=== PATIENT | female | born 1985 | race Hispanic/Latino ===

== ENCOUNTER 2023-12-09 20:02 | Emergency (ER) | payer OTHER ==
[~2023-12-09] VITALS: Ht 160 cm; Wt 65.8 kg
[2023-12-09 20:30] LABS: APPEARANCE,URINE CLEAR (CLEAR); BILIRUBIN,URINE NEGATIVE (NEGATIVE); COLOR,URINE LIGHT-YELLOW (YELLOW); GLUCOSE, URINE (UA) NEGATIVE (NEGATIVE); KETONES,URINE NEGATIVE (NEGATIVE); LEUKOCYTE ESTERASE ,URINE 25 Leu/uL (NEGATIVE); NITRATE,URINE NEGATIVE (NEGATIVE); OCCULT BLOOD,URINE SMALL (NEGATIVE); PROTEIN,URINE NEGATIVE (NEGATIVE); UROBILINOGEN,URINE 0.2 mg/dL (0.2-1.0)
[2023-12-09 20:35] LABS: ADD UA MICROSCOPIC YES
[2023-12-09 20:37] LABS: BACTERIA,URINE RARE /HPF (None Seen); MUCUS,URINE RARE LPF (None Seen); SQUAMOUS EPITHELIAL CELL,UR RARE /HPF (0-2)
[2023-12-09] MEDS: PHENAZOPYRIDINE HCL 200 MG TABLET PO ONE (20:56)
[2023-12-09] MEDS: 0.9%NACL 1000ML 1,000 ML IV ONE (20:56)
[2023-12-09] MEDS: KETOROLAC 30MG VIAL (30MG/ML) IVP ONE (20:56)
[2023-12-09] MEDS: ONDANSETRON 4MG INJ IVP ONE (20:56)
[2023-12-09 21:09] LABS: BASOPHILS # (AUTO) 0.04 K/uL (0.00-0.20); BASOPHILS % (AUTO) 0.5 % (0.0-5.0); EOSINOPHILS # (AUTO) 0.15 K/uL (0.00-0.70); EOSINOPHILS % (AUTO) 1.8 % (0.0-8.0); HEMATOCRIT 35.9 % (36-48); IMMATURE GRANULOCYTE ABSOLUTE 0.01 K/uL (0-1); LYMPHOCYTES # (AUTO) 2.8 K/uL (1.0-4.8); LYMPHOCYTES % (AUTO) 33.7 % (21.0-51.0); MEAN CORPUSCULAR VOLUME 91.1 fL (79-99); MONOCYTES # (AUTO) 0.6 K/uL (0.1-1.0); MONOCYTES % (AUTO) 7.5 % (3.0-13.0); NEUTROPHILS # (AUTO) 4.7 K/uL (1.8-7.7); NEUTROPHILS % (AUTO) 56.4 % (40.0-77.0); PLATELET COUNT (AUTO) 302 K/uL (130-400); RED BLOOD CELL COUNT(AUTO) 3.94 MIL/uL (4.00-5.50); RED CELL DISTRIBUTION WIDTH 13.1 % (11.0-15.5); WHITE BLOOD COUNT (AUTO) 8.3 K/uL (4.8-10.8)
[2023-12-09 21:25] LABS: ALBUMIN 3.9 g/dL (3.5-5.0); BILIRUBIN,TOTAL 0.3 mg/dL (0.2-1.0); CREATININE 0.7 mg/dL (0.5-1.5); POTASSIUM 3.6 mmol/L (3.5-5.1); TOTAL PROTEIN, SERUM 7.5 g/dL (6.0-8.3)
[2023-12-09] MEDS: MORPHINE 2 MG SYG IVP ONE (22:28)
[2023-12-09] MEDS ORDERED: PHEN-776 PO (22:57)
[2023-12-09] MEDS ORDERED: AMOX1TAB16 PO (22:57)
[2023-12-09] MEDS ORDERED: ONDA4TAB10 PO (22:57)
[2023-12-09] MEDS ORDERED: IBUP-2070 PO (22:57)
[2023-12-09] MEDS: AMOX/CLAV 875/125MG TAB PO ONE (22:59)
[2023-12-09 23:18] VITALS: BP 128/63; PULSE 88; RESP 17; O2SAT 99
== END 2023-12-09 23:17 | disposition home or self-care (01) ==
LOC: EDH 20:02
DX: N30.01 Acute cystitis with hematuria (principal); N20.9 Urinary calculus, unspecified; N23 Unspecified renal colic
CPT/HCPCS: 99285; 74176; 96374; 96375; 96361; 80053; 85025; 87088; 81001; 81025; 36415; J2270; J7030; J2405; J1885

== ENCOUNTER 2023-12-19 19:21 | Inpatient (IN) | payer OTHER ==
[~2023-12-19] VITALS: Ht 160 cm; Wt 60.8 kg
[~2023-12-19 19:21] MED LIST: AMOX1TAB16 PO; IBUP-2070 PO; ONDA4TAB10 PO; PHEN-776 PO
[2023-12-19] MEDS: KETOROLAC 30MG VIAL (30MG/ML) IVP ONE (19:40)
[2023-12-19] MEDS: 0.9%NACL 1000ML 1,000 ML IV ONE (19:41)
[2023-12-19] MEDS: ONDANSETRON 4MG INJ IVP PRN (19:48)
[2023-12-19 20:27] LABS: BASOPHILS # (AUTO) 0.06 K/uL (0.00-0.20); BASOPHILS % (AUTO) 0.4 % (0.0-5.0); EOSINOPHILS # (AUTO) 0.05 K/uL (0.00-0.70); EOSINOPHILS % (AUTO) 0.3 % (0.0-8.0); HEMATOCRIT 35.6 % (36-48); IMMATURE GRANULOCYTE ABSOLUTE 0.05 K/uL (0-1); LYMPHOCYTES # (AUTO) 1.3 K/uL (1.0-4.8); LYMPHOCYTES % (AUTO) 8.9 % (21.0-51.0); MEAN CORPUSCULAR HEMOGLOBIN 30.4 pg (27.0-33.0); MEAN CORPUSCULAR HGB CONC 33.4 g/dL (32.0-36.0); MEAN CORPUSCULAR VOLUME 90.8 fL (79-99); MONOCYTES # (AUTO) 0.9 K/uL (0.1-1.0); MONOCYTES % (AUTO) 6.6 % (3.0-13.0); NEUTROPHILS % (AUTO) 83.5 % (40.0-77.0); PLATELET COUNT (AUTO) 272 K/uL (130-400); RED BLOOD CELL COUNT(AUTO) 3.92 MIL/uL (4.00-5.50); RED CELL DISTRIBUTION WIDTH 13.1 % (11.0-15.5); WHITE BLOOD COUNT (AUTO) 14.4 K/uL (4.8-10.8)
[2023-12-19 20:28] LABS: CREATININE 0.6 mg/dL (0.5-1.5); POTASSIUM 3.8 mmol/L (3.5-5.1)
[2023-12-19] MEDS: ACETAMINOPHEN 500 MG TABLET PO ONE (20:28)
[2023-12-19] MEDS: DEXAMETHASONE SOD PHOSPHATE 4 MG/ML 1ML VIAL IVP ONE (20:28)
[2023-12-19] MEDS: METOCLOPRAMIDE 10 MG/2 ML VIAL IVP ONE ×2 (20:30→23:51)
[2023-12-19 20:34] LABS: APPEARANCE,URINE CLOUDY (CLEAR); BILIRUBIN,URINE NEGATIVE (NEGATIVE); COLOR,URINE YELLOW (YELLOW); GLUCOSE, URINE (UA) NEGATIVE (NEGATIVE); KETONES,URINE NEGATIVE (NEGATIVE); LEUKOCYTE ESTERASE ,URINE 500 Leu/uL (NEGATIVE); NITRATE,URINE NEGATIVE (NEGATIVE); OCCULT BLOOD,URINE MODERATE (NEGATIVE); PH,URINE 6.5 (5.0-8.0); PROTEIN,URINE 20 mg/dL (NEGATIVE); UROBILINOGEN,URINE 0.2 mg/dL (0.2-1.0)
[2023-12-19 20:37] LABS: ADD UA MICROSCOPIC YES
[2023-12-19 20:40] LABS: BACTERIA,URINE MOD /HPF (None Seen); SQUAMOUS EPITHELIAL CELL,UR FEW /HPF (0-2); WBC,URINE 51-100 /HPF (0-1); YEAST,URINE BUDDING RARE /HPF (None Seen)
[2023-12-19 20:43] LABS: AMPHET/METH SCREEN,URINE NEGATIVE (NEGATIVE); BARBITURATE SCREEN, URINE NEGATIVE (NEGATIVE); BENZODIAZEPINES SCREEN,URINE NEGATIVE (NEGATIVE); CANNABINOID SCREEN,URINE NEGATIVE (NEGATIVE); COCAINE SCREEN,URINE NEGATIVE (NEGATIVE); OPIATE SCREEN,URINE NEGATIVE (NEGATIVE); PHENCYCLIDINE SCREEN,URINE NEGATIVE (NEGATIVE)
[2023-12-19 20:46] LABS: SARS-CoV-2, RNA, NAAT NEGATIVE SARS CoV-2 (NEGATIVE)
[2023-12-19 20:52] LABS: INFLUENZA TYPE A Negative For Type A (NEGATIVE); INFLUENZA TYPE B Negative For Type B (NEGATIVE)
[2023-12-19] MEDS ORDERED: LEVOFLOXACIN 500 MG TABLET PO ONE (23:30)
[2023-12-19] MEDS: MORPHINE 4 MG SYG IVP ONE (23:38)
[2023-12-19] MEDS: CEFTRIAXONE 2GM VIAL IVPB ONE (23:38)
[2023-12-20] MEDS: KETOROLAC 15MG/ML VIAL (15MG/ML) IV PRN (01:21)
[2023-12-20] MEDS: 0.9%NACL 1000ML 1,000 ML IV SCH (03:10)
[2023-12-20] MEDS: ONDANSETRON 4MG INJ IV PRN (04:21)
[2023-12-20] MEDS: MORPHINE 2 MG SYG IVP PRN (04:22)
[2023-12-20 04:40] VITALS: O2SAT 98
[2023-12-20 06:23] LABS: BASOPHILS # (AUTO) 0.01 K/uL (0.00-0.20); BASOPHILS % (AUTO) 0.1 % (0.0-5.0); HEMATOCRIT 37.1 % (36-48); IMMATURE GRANULOCYTE ABSOLUTE 0.06 K/uL (0-1); LYMPHOCYTES # (AUTO) 0.6 K/uL (1.0-4.8); LYMPHOCYTES % (AUTO) 5.1 % (21.0-51.0); MEAN CORPUSCULAR HEMOGLOBIN 30.3 pg (27.0-33.0); MEAN CORPUSCULAR HGB CONC 33.4 g/dL (32.0-36.0); MEAN CORPUSCULAR VOLUME 90.7 fL (79-99); MONOCYTES # (AUTO) 0.1 K/uL (0.1-1.0); MONOCYTES % (AUTO) 0.5 % (3.0-13.0); NEUTROPHILS # (AUTO) 10.8 K/uL (1.8-7.7); NEUTROPHILS % (AUTO) 93.8 % (40.0-77.0); PLATELET COUNT (AUTO) 301 K/uL (130-400); RED BLOOD CELL COUNT(AUTO) 4.09 MIL/uL (4.00-5.50); WHITE BLOOD COUNT (AUTO) 11.5 K/uL (4.8-10.8)
[2023-12-20 06:39] LABS: ALBUMIN 3.5 g/dL (3.5-5.0); BILIRUBIN,TOTAL 0.8 mg/dL (0.2-1.0); CREATININE 0.5 mg/dL (0.5-1.5); MAGNESIUM 1.8 mg/dL (1.80-2.40); POTASSIUM 3.6 mmol/L (3.5-5.1)
[2023-12-20 08:00] VITALS: BP 118/83; PULSE 97; RESP 21
[2023-12-20] MEDS: CEFTRIAXONE 1G VIAL IVPB SCH (08:34)
[2023-12-20] MEDS: FAMOTIDINE 20MG VIAL IV SCH (08:34)
[2023-12-20 12:00] VITALS: BP 120/69; PULSE 107; RESP 19
[2023-12-20 16:00] VITALS: BP 132/83; PULSE 95; RESP 16
[2023-12-20 20:00] VITALS: BP 129/89; PULSE 84; RESP 18
[2023-12-20 21:00] VITALS: O2SAT 98
[2023-12-21] VITALS: BP 117/70; PULSE 95; RESP 18
[2023-12-21 03:55] VITALS: BP 120/73; PULSE 83; RESP 18
[2023-12-21 08:00] VITALS: BP 106/58; PULSE 80; RESP 18; O2SAT 99
[2023-12-21 09:06] LABS: BASOPHILS # (AUTO) 0.03 K/uL (0.00-0.20); BASOPHILS % (AUTO) 0.3 % (0.0-5.0); EOSINOPHILS # (AUTO) 0.02 K/uL (0.00-0.70); EOSINOPHILS % (AUTO) 0.2 % (0.0-8.0); HEMATOCRIT 32.3 % (36-48); IMMATURE GRANULOCYTE ABSOLUTE 0.03 K/uL (0-1); LYMPHOCYTES # (AUTO) 2.8 K/uL (1.0-4.8); LYMPHOCYTES % (AUTO) 29.5 % (21.0-51.0); MEAN CORPUSCULAR HEMOGLOBIN 31.1 pg (27.0-33.0); MEAN CORPUSCULAR HGB CONC 33.4 g/dL (32.0-36.0); MEAN CORPUSCULAR VOLUME 93.1 fL (79-99); MONOCYTES # (AUTO) 0.5 K/uL (0.1-1.0); MONOCYTES % (AUTO) 4.7 % (3.0-13.0); NEUTROPHILS # (AUTO) 6.2 K/uL (1.8-7.7); PLATELET COUNT (AUTO) 249 K/uL (130-400); RED BLOOD CELL COUNT(AUTO) 3.47 MIL/uL (4.00-5.50); RED CELL DISTRIBUTION WIDTH 13.4 % (11.0-15.5); WHITE BLOOD COUNT (AUTO) 9.5 K/uL (4.8-10.8)
[2023-12-21 09:23] LABS: BILIRUBIN,TOTAL 0.6 mg/dL (0.2-1.0); CREATININE 0.6 mg/dL (0.5-1.5); POTASSIUM 3.5 mmol/L (3.5-5.1)
[2023-12-21 12:00] VITALS: BP 118/66; PULSE 83; RESP 18
[2023-12-21] MEDS: DOCUSATE SODIUM 100 MG CAP PO ONE (14:59)
[2023-12-21 16:00] VITALS: BP 106/69; PULSE 81; RESP 18
[2023-12-21 20:00] VITALS: BP 121/80; PULSE 72; RESP 18
[2023-12-21] MEDS: LACTULOSE 20 GM/30 ML UDCUP PO PRN (20:34)
[2023-12-21] MEDS: DOCUSATE SODIUM 100 MG CAP PO SCH (21:00)
[2023-12-22] VITALS (7 sets, daily range): BP systolic 104–141; BP diastolic 65–88; PULSE 58–85; RESP 18; O2SAT 98
[2023-12-22 05:03] LABS: BASOPHILS # (AUTO) 0.03 K/uL (0.00-0.20); BASOPHILS % (AUTO) 0.4 % (0.0-5.0); EOSINOPHILS # (AUTO) 0.07 K/uL (0.00-0.70); EOSINOPHILS % (AUTO) 0.9 % (0.0-8.0); HEMATOCRIT 32.9 % (36-48); IMMATURE GRANULOCYTE ABSOLUTE 0.02 K/uL (0-1); LYMPHOCYTES # (AUTO) 3.6 K/uL (1.0-4.8); LYMPHOCYTES % (AUTO) 43.9 % (21.0-51.0); MEAN CORPUSCULAR HEMOGLOBIN 30.5 pg (27.0-33.0); MEAN CORPUSCULAR HGB CONC 32.8 g/dL (32.0-36.0); MEAN CORPUSCULAR VOLUME 92.9 fL (79-99); MONOCYTES # (AUTO) 0.5 K/uL (0.1-1.0); MONOCYTES % (AUTO) 5.7 % (3.0-13.0); NEUTROPHILS % (AUTO) 48.9 % (40.0-77.0); PLATELET COUNT (AUTO) 234 K/uL (130-400); RED BLOOD CELL COUNT(AUTO) 3.54 MIL/uL (4.00-5.50); RED CELL DISTRIBUTION WIDTH 13.2 % (11.0-15.5); WHITE BLOOD COUNT (AUTO) 8.1 K/uL (4.8-10.8)
[2023-12-22 05:22] LABS: ALBUMIN 2.8 g/dL (3.5-5.0); BILIRUBIN,TOTAL 0.4 mg/dL (0.2-1.0); CREATININE 0.5 mg/dL (0.5-1.5); POTASSIUM 3.6 mmol/L (3.5-5.1); TOTAL PROTEIN, SERUM 5.9 g/dL (6.0-8.3)
[2023-12-22] MEDS: POLYETHYLENE GLYCOL 3350 17 GM POWD.PACK PO SCH (09:02)
[2023-12-23] VITALS: BP 121/75; PULSE 56; RESP 18
[2023-12-23 03:54] VITALS: BP 133/81; PULSE 63; RESP 18
[2023-12-23 05:00] LABS: BASOPHILS # (AUTO) 0.03 K/uL (0.00-0.20); BASOPHILS % (AUTO) 0.4 % (0.0-5.0); EOSINOPHILS % (AUTO) 1.2 % (0.0-8.0); HEMATOCRIT 34.7 % (36-48); IMMATURE GRANULOCYTE ABSOLUTE 0.03 K/uL (0-1); LYMPHOCYTES # (AUTO) 2.6 K/uL (1.0-4.8); LYMPHOCYTES % (AUTO) 31.3 % (21.0-51.0); MEAN CORPUSCULAR HEMOGLOBIN 30.7 pg (27.0-33.0); MEAN CORPUSCULAR HGB CONC 33.4 g/dL (32.0-36.0); MEAN CORPUSCULAR VOLUME 91.8 fL (79-99); MONOCYTES # (AUTO) 0.5 K/uL (0.1-1.0); MONOCYTES % (AUTO) 6.4 % (3.0-13.0); NEUTROPHILS % (AUTO) 60.3 % (40.0-77.0); PLATELET COUNT (AUTO) 270 K/uL (130-400); RED BLOOD CELL COUNT(AUTO) 3.78 MIL/uL (4.00-5.50); WHITE BLOOD COUNT (AUTO) 8.3 K/uL (4.8-10.8)
[2023-12-23 05:21] LABS: CREATININE 0.5 mg/dL (0.5-1.5); POTASSIUM 3.7 mmol/L (3.5-5.1)
[2023-12-23 08:00] VITALS: BP 131/87; PULSE 71; RESP 18; O2SAT 99
[2023-12-23 12:00] VITALS: BP 113/66; PULSE 68; RESP 18
[2023-12-23 16:00] VITALS: BP 112/78; PULSE 68; RESP 18
[2023-12-23 20:00] VITALS: BP 125/83; PULSE 68; RESP 18; O2SAT 100
[2023-12-23] MEDS: HYDROXYZINE 25 MG TABLET PO ONE (21:21)
[2023-12-24] VITALS (9 sets, daily range): BP systolic 109–136; BP diastolic 63–84; PULSE 65–103; RESP 16–20; O2SAT 99–100
[2023-12-24 04:25] LABS: HEMATOCRIT 33.8 % (36-48); MEAN CORPUSCULAR HEMOGLOBIN 30.5 pg (27.0-33.0); MEAN CORPUSCULAR HGB CONC 33.4 g/dL (32.0-36.0); MEAN CORPUSCULAR VOLUME 91.1 fL (79-99); RED BLOOD CELL COUNT(AUTO) 3.71 MIL/uL (4.00-5.50); RED CELL DISTRIBUTION WIDTH 12.8 % (11.0-15.5); WHITE BLOOD COUNT (AUTO) 9.9 K/uL (4.8-10.8)
[2023-12-24 04:45] LABS: ALBUMIN 2.8 g/dL (3.5-5.0); BILIRUBIN,TOTAL 0.4 mg/dL (0.2-1.0); CREATININE 0.5 mg/dL (0.5-1.5); MAGNESIUM 1.7 mg/dL (1.80-2.40); POTASSIUM 3.6 mmol/L (3.5-5.1); TOTAL PROTEIN, SERUM 5.7 g/dL (6.0-8.3)
[2023-12-24] MEDS: KCL 20 MEQ ERTAB PO PRN (05:21)
[2023-12-24] MEDS: MAGNESIUM 2GM PREMIX 50ML 50 ML IV PRN (05:21)
[2023-12-24] MEDS ORDERED: POTASSIUM CHLORIDE 20MEQ/100ML 100 ML IV PRN (05:30)
[2023-12-24] MEDS ORDERED: POTASSIUM CHLORIDE 10% ELIXIR 20 MEQ/15 ML UDCUP PO PRN (05:30)
[2023-12-24] MEDS ORDERED: TAMS-1 PO (09:44)
[2023-12-24] MEDS: TAMSULOSIN HCL 0.4 MG CAP.ER.24H PO ONE (09:48)
[2023-12-24] MEDS: LINEZOLID 600 MG/ISO-OSM 300 ML IV SCH (20:33)
[2023-12-24] MEDS: HYDROXYZINE 25 MG TABLET PO ONE (20:33)
[2023-12-24] MEDS: ONDANSETRON 4MG INJ IVP PRN (21:26)
[2023-12-25 04:11] VITALS: BP 102/61; PULSE 64; RESP 16
[2023-12-25 06:54] LABS: BASOPHILS # (AUTO) 0.04 K/uL (0.00-0.20); BASOPHILS % (AUTO) 0.5 % (0.0-5.0); EOSINOPHILS # (AUTO) 0.14 K/uL (0.00-0.70); EOSINOPHILS % (AUTO) 1.9 % (0.0-8.0); HEMATOCRIT 36.8 % (36-48); IMMATURE GRANULOCYTE ABSOLUTE 0.02 K/uL (0-1); LYMPHOCYTES # (AUTO) 2.1 K/uL (1.0-4.8); LYMPHOCYTES % (AUTO) 28.3 % (21.0-51.0); MEAN CORPUSCULAR HEMOGLOBIN 30.6 pg (27.0-33.0); MEAN CORPUSCULAR HGB CONC 33.2 g/dL (32.0-36.0); MEAN CORPUSCULAR VOLUME 92.2 fL (79-99); MONOCYTES # (AUTO) 0.6 K/uL (0.1-1.0); MONOCYTES % (AUTO) 7.8 % (3.0-13.0); NEUTROPHILS # (AUTO) 4.5 K/uL (1.8-7.7); NEUTROPHILS % (AUTO) 61.2 % (40.0-77.0); PLATELET COUNT (AUTO) 277 K/uL (130-400); RED BLOOD CELL COUNT(AUTO) 3.99 MIL/uL (4.00-5.50); RED CELL DISTRIBUTION WIDTH 13.2 % (11.0-15.5); WHITE BLOOD COUNT (AUTO) 7.4 K/uL (4.8-10.8)
[2023-12-25 07:12] LABS: ALBUMIN 3.1 g/dL (3.5-5.0); BILIRUBIN,TOTAL 0.4 mg/dL (0.2-1.0); CREATININE 0.7 mg/dL (0.5-1.5); MAGNESIUM 1.8 mg/dL (1.80-2.40); POTASSIUM 3.9 mmol/L (3.5-5.1); TOTAL PROTEIN, SERUM 6.3 g/dL (6.0-8.3)
[2023-12-25 07:30] VITALS: O2SAT 100
[2023-12-25 07:32] VITALS: BP 111/59; PULSE 79; RESP 19
[2023-12-25] MEDS: TAMSULOSIN HCL 0.4 MG CAP.ER.24H PO SCH (09:33)
[2023-12-25 11:39] VITALS: BP 107/77; PULSE 64; RESP 18
== END 2023-12-25 15:05 | disposition home or self-care (01) | DRG 872 ==
LOC: EDH 19:21 → EDHIP 12-20 01:55 → 4CH 12-20 03:22 → WSH 12-24 08:55
PROVIDERS: ADMIT Hospitalist; ATTEND Hospitalist
DX: A41.1 Sepsis due to other specified staphylococcus (principal); N30.01 Acute cystitis with hematuria; N10 Acute pyelonephritis; N20.0 Calculus of kidney; G43.009 Migraine without aura, not intractable, without status migrainosus; D64.9 Anemia, unspecified; K59.00 Constipation, unspecified; M32.9 Systemic lupus erythematosus, unspecified; N28.89 Other specified disorders of kidney and ureter; Z85.43 Personal history of malignant neoplasm of ovary; Z88.2 Allergy status to sulfonamides; Z91.041 Radiographic dye allergy status; Z87.442 Personal history of urinary calculi; Z90.711 Acquired absence of uterus with remaining cervical stump; Z90.721 Acquired absence of ovaries, unilateral
CPT/HCPCS: 36415; 71045; 74018; 74176; 80048; 80053; 80305; 81001; 83605; 83735; 84145; 84484; 85025; 85027; 87040; 87077; 87088; 87186; 87635; 87804; 93005; G0378; J0696; J1100; J1885; J2020; J2270; J2405; J2765; J3475; J3490

== ENCOUNTER 2024-02-05 14:33 | Emergency (ER) | payer OTHER ==
[~2024-02-05] VITALS: Ht 160 cm; Wt 56.7 kg
[~2024-02-05 14:33] MED LIST changes: -AMOX1TAB16 PO; +TAMS-1 PO
[2024-02-05 15:00] LABS: BASOPHILS # (AUTO) 0.04 K/uL (0.00-0.20); BASOPHILS % (AUTO) 0.5 % (0.0-5.0); EOSINOPHILS # (AUTO) 0.09 K/uL (0.00-0.70); EOSINOPHILS % (AUTO) 1.1 % (0.0-8.0); HEMATOCRIT 39.8 % (36-48); IMMATURE GRANULOCYTE ABSOLUTE 0.03 K/uL (0-1); LYMPHOCYTES # (AUTO) 2.9 K/uL (1.0-4.8); LYMPHOCYTES % (AUTO) 34.5 % (21.0-51.0); MEAN CORPUSCULAR HEMOGLOBIN 31.6 pg (27.0-33.0); MEAN CORPUSCULAR HGB CONC 33.2 g/dL (32.0-36.0); MEAN CORPUSCULAR VOLUME 95.2 fL (79-99); MONOCYTES # (AUTO) 0.4 K/uL (0.1-1.0); MONOCYTES % (AUTO) 5.2 % (3.0-13.0); NEUTROPHILS % (AUTO) 58.3 % (40.0-77.0); PLATELET COUNT (AUTO) 294 K/uL (130-400); RED BLOOD CELL COUNT(AUTO) 4.18 MIL/uL (4.00-5.50); RED CELL DISTRIBUTION WIDTH 13.8 % (11.0-15.5); WHITE BLOOD COUNT (AUTO) 8.5 K/uL (4.8-10.8)
[2024-02-05] MEDS: ONDANSETRON 4MG INJ IVP ONE (15:02)
[2024-02-05] MEDS: MORPHINE 4 MG SYG IVP ONE (15:03)
[2024-02-05] MEDS: 0.9%NACL 1000ML 1,000 ML IV SCH (15:06)
[2024-02-05 15:11] LABS: CREATININE 0.6 mg/dL (0.5-1.0); POTASSIUM 3.9 mmol/L (3.5-5.1)
[2024-02-05 15:16] LABS: ALBUMIN 4.2 g/dL (3.5-5.0); BILIRUBIN,TOTAL 0.4 mg/dL (0.2-1.0); TOTAL PROTEIN, SERUM 7.9 g/dL (6.0-8.3)
[2024-02-05] MEDS: FAMOTIDINE 20MG VIAL IV ONE (15:33)
[2024-02-05] MEDS: METOCLOPRAMIDE 10 MG/2 ML VIAL IVP ONE (15:33)
[2024-02-05] MEDS: KETOROLAC 30MG VIAL (30MG/ML) IVP ONE (15:34)
[2024-02-05 16:04] VITALS: BP 103/56; PULSE 69; RESP 18; O2SAT 99
[2024-02-05 16:59] LABS: APPEARANCE,URINE CLEAR (CLEAR); BILIRUBIN,URINE NEGATIVE (NEGATIVE); COLOR,URINE DARK-YELLOW (YELLOW); GLUCOSE, URINE (UA) NEGATIVE (NEGATIVE); KETONES,URINE NEGATIVE (NEGATIVE); LEUKOCYTE ESTERASE ,URINE NEGATIVE Leu/uL (NEGATIVE); NITRATE,URINE 1+ (NEGATIVE); OCCULT BLOOD,URINE SMALL (NEGATIVE); PROTEIN,URINE NEGATIVE (NEGATIVE); UROBILINOGEN,URINE 0.2 mg/dL (0.2-1.0)
[2024-02-05 17:01] LABS: ADD UA MICROSCOPIC YES
[2024-02-05 17:03] LABS: BACTERIA,URINE FEW /HPF (None Seen); SQUAMOUS EPITHELIAL CELL,UR RARE /HPF (0-2); WBC,URINE 0-1 /HPF (0-1)
[2024-02-05] MEDS ORDERED: KETO10 PO (18:00)
[2024-02-05] MEDS ORDERED: METO-296 PO (18:00)
[2024-02-05] MEDS ORDERED: FAMO-136 PO (18:00)
[2024-02-05] MEDS ORDERED: TAMS-1 PO (18:00)
== END 2024-02-05 18:16 | disposition home or self-care (01) ==
LOC: EDH 14:33
DX: N13.2 Hydronephrosis with renal and ureteral calculous obstruction (principal); Z90.710 Acquired absence of both cervix and uterus; Z98.890 Other specified postprocedural states; Z88.2 Allergy status to sulfonamides; Z88.8 Allergy status to other drugs, medicaments and biological substances; Z91.041 Radiographic dye allergy status
CPT/HCPCS: 99285; 74176; 96374; 96375; 96361; 80053; 83690; 85025; 87088; 81001; 36415; J3490; J7030; J2405; J2270; J1885; J2765

== ENCOUNTER 2024-06-30 21:21 | Emergency (ER) | payer OTHER ==
[~2024-06-30] VITALS: Ht 160 cm; Wt 59.0 kg
[~2024-06-30 21:21] MED LIST changes: +FAMO-136 PO; +KETO10 PO; +METO-296 PO; +ONDA-243 PO; -ONDA4TAB10 PO
[2024-06-30] MEDS ORDERED: IBUP-2071 PO (22:29)
[2024-06-30 22:32] VITALS: BP 137/77; PULSE 62; RESP 20; TEMP 97.9; O2SAT 100
[2024-06-30] MEDS: ketOROlac 15MG/ML VIAL (15MG/ML) IM STA (22:32)
== END 2024-06-30 22:37 | disposition home or self-care (01) ==
LOC: EDH 21:21
DX: S63.592A Other specified sprain of left wrist, initial encounter (principal); Z79.899 Other long term (current) drug therapy; Z88.2 Allergy status to sulfonamides; Z88.8 Allergy status to other drugs, medicaments and biological substances; Z90.710 Acquired absence of both cervix and uterus; Z91.013 Allergy to seafood; Z91.018 Allergy to other foods; Z98.890 Other specified postprocedural states; W50.1XXA Accidental kick by another person, initial encounter; Y93.89 Activity, other specified; Y92.89 Other specified places as the place of occurrence of the external cause; Y99.8 Other external cause status
CPT/HCPCS: 99284; 73502; 73110; 29125; 96372; J1885

== ENCOUNTER 2024-10-15 11:52 | Emergency (ER) | payer OTHER ==
[~2024-10-15] VITALS: Ht 160 cm; Wt 59.0 kg
[~2024-10-15 11:52] MED LIST changes: +IBUP-2071 PO
[2024-10-15] MEDS: ondanSETRON 4MG INJ IVP ONE (12:11)
[2024-10-15] MEDS: 0.9%NACL 1000ML 1,000 ML IV ONE (12:11)
[2024-10-15 12:16] LABS: BASOPHILS # (AUTO) 0.03 K/uL (0.00-0.20); BASOPHILS % (AUTO) 0.4 % (0.0-5.0); EOSINOPHILS # (AUTO) 0.16 K/uL (0.00-0.70); EOSINOPHILS % (AUTO) 2.3 % (0.0-8.0); HEMATOCRIT 36.8 % (36-48); IMMATURE GRANULOCYTE ABSOLUTE 0.02 K/uL (0-1); LYMPHOCYTES # (AUTO) 1.4 K/uL (1.0-4.8); LYMPHOCYTES % (AUTO) 20.3 % (21.0-51.0); MEAN CORPUSCULAR HEMOGLOBIN 30.6 pg (27.0-33.0); MEAN CORPUSCULAR VOLUME 90.2 fL (79-99); MONOCYTES # (AUTO) 0.7 K/uL (0.1-1.0); MONOCYTES % (AUTO) 10.1 % (3.0-13.0); NEUTROPHILS # (AUTO) 4.7 K/uL (1.8-7.7); NEUTROPHILS % (AUTO) 66.6 % (40.0-77.0); PLATELET COUNT (AUTO) 230 K/uL (130-400); RED BLOOD CELL COUNT(AUTO) 4.08 MIL/uL (4.00-5.50); RED CELL DISTRIBUTION WIDTH 12.9 % (11.0-15.5); WHITE BLOOD COUNT (AUTO) 7.1 K/uL (4.8-10.8)
--- NOTE | 2024-10-15 12:21 | NUR ---
PT WAS DIRECTED BEDDED TO MY ED 10. SHE WAS OFFERED AND ACCEPTED A WARM BLANKET. SHE HAS EMESIS BAGS WHERE SHE HAD YELLOWISH BILE VOMITING.
[2024-10-15 12:22] LABS: APPEARANCE,URINE CLEAR (CLEAR); BILIRUBIN,URINE NEGATIVE (NEGATIVE); COLOR,URINE LIGHT-YELLOW (YELLOW); GLUCOSE, URINE (UA) NEGATIVE (NEGATIVE); KETONES,URINE NEGATIVE (NEGATIVE); LEUKOCYTE ESTERASE ,URINE NEGATIVE Leu/uL (NEGATIVE); NITRATE,URINE NEGATIVE (NEGATIVE); OCCULT BLOOD,URINE SMALL (NEGATIVE); PH,URINE 6.5 (5.0-8.0); PROTEIN,URINE NEGATIVE (NEGATIVE); UROBILINOGEN,URINE 0.2 mg/dL (0.2-1.0)
[2024-10-15 12:25] LABS: ADD UA MICROSCOPIC YES
[2024-10-15 12:27] LABS: BACTERIA,URINE MOD /HPF (None Seen); MUCUS,URINE RARE LPF (None Seen); SQUAMOUS EPITHELIAL CELL,UR FEW /HPF (0-2)
[2024-10-15 12:30] LABS: ALBUMIN 3.5 g/dL (3.5-5.0); BILIRUBIN,DIRECT 0.1 mg/dL (0.0-0.3); BILIRUBIN,TOTAL 0.3 mg/dL (0.2-1.0); TOTAL PROTEIN, SERUM 6.8 g/dL (6.0-8.3)
--- NOTE | 2024-10-15 12:32 | ERN ---
ED Note History of Present Illness Stated Complaint: N/V/D X 4 DAYS Chief Complaint: Nausea,Vomiting,Diarrhea Time Seen by MD: 11:54 Dictation: 39-year-old female with a history of lupus presents to the ED for evaluation of cough onset 4 days ago. Patient reports sore throat, abdominal pain, body aches, vomiting, diarrhea, but denies any fever or any other associated symptoms at this time. Sick contacts at work with similar symptoms. Allergies: Coded Allergies: Fish Containing Products (Unverified Allergy, Severe, ANAPHYLAXIS, 12/22/23) pineapple (Unverified Allergy, Severe, anaphylaxis, 12/22/23) shellfish derived (Unverified Allergy, Severe, anaphylaxis, 12/22/23) artichoke (Unverified Allergy, Intermediate, 12/21/23) iodine (Unverified Allergy, Intermediate, irritation, 12/22/23) mushroom (Unverified Allergy, Intermediate, 12/21/23) Sulfa (Sulfonamide Antibiotics) (Unverified Allergy, Unknown, 12/09/23) Home Meds Active Scripts Oseltamivir Phosphate (Tamiflu) 75 Mg Cap, 75 MG PO BID for 5 Days, #10 CAP Prov:JAY COSTA MD 10/15/24 Azithromycin (Azithromycin) 250 Mg Tablet, 250 MG PO AD for cough for 5 Days, #6 TAB Prov:JAY COSTA MD 10/15/24 Ibuprofen (Ibuprofen) 800 Mg Tablet, 800 MG PO Q8H PRN for PAIN, #30 TAB 0 Refills Prov:MAGDALENO QUIJANO 06/30/24 Metoclopramide HCl (Reglan) 10 Mg Tablet, 10 MG PO QIDP PRN for NAUSEA, #40 TAB 2 Refills Prov:SPENCER FINCH Sr., MD 02/05/24 Famotidine (Pepcid) 20 Mg Tablet, 20 MG PO BID, #60 TAB 2 Refills Prov:SPENCER FINCH Sr., MD 02/05/24 Ketorolac Tromethamine (Toradol) 10 Mg Tab, 10 MG PO TIDP PRN for PAIN LEVEL 7 TO 10, #5 TAB 1 Refill Prov:SPENCER FINCH Sr., MD 02/05/24 Tamsulosin HCl (Flomax) 0.4 Mg Cap.er.24h, 0.4 MG PO DAILY, #5 CAPSULE. 1 Refill Prov:SPENCER FINCH Sr., MD 02/05/24 Tamsulosin HCl (Flomax) 0.4 Mg Cap.er.24h, 0.4 MG PO DAILY for 15 Days, #15 CAPSULE. Prov:YVETTE MENDEZ NP 12/24/23 Phenazopyridine HCl (Pyridium) 200 Mg Tablet, 200 MG PO TID for painful urination for 5 Days, #15 TAB 0 Refills Prov:FRANCISCO SWIFT ENGLISH LANGUAGE LEARNER TUTOR 12/09/23 Ibuprofen (Ibuprofen) 600 Mg Tablet, 600 MG PO Q6H PRN for PAIN, #30 TAB Prov:FRANCISCO SWIFT ENGLISH LANGUAGE LEARNER TUTOR 12/09/23 Ondansetron (Ondansetron Odt) 4 Mg Tab.rapdis, 4 MG PO Q6HPRN PRN for nausea, #16 TAB 0 Refills Prov:FRANCISCO SWIFT NP 12/09/23 Past Medical History Past Medical History: Immunosuppression, Other Additional Past Medical Hx: LUPUS Surgical History: Other Surgical History Other: PARTIAL HYSTERECTOMY Social History: Negative History: Not Applicable LMP: Sep 24, 2024 Review of System Dictation Constitutional: Positive for body aches Negative for fever,chills, and weight loss Eyes: Negative for injury, pain,redness, and discharge ENT: Positive for sore throat Cardiovascular: Negative for chest pain, palpitations, and edema Respiratory: Negative for shortness of breath, cough, and wheezing, Abdomen/GI: Positive for abdominal pain, nausea, vomiting, diarrhea Back: Negative for injury and pain : Negative for injury, bleeding and discharge MS/Extremity: Negative for injury and deformity Skin: Negative for rash, and discoloration Neuro: Negative for headache, weakness, numbness, tingling, and seizure Psych: Negative for suicide ideation, homicidal ideation, and hallucinations Initial Vital Sign VS Vital Signs Date Time Temp Pulse Resp B/P (MAP) Pulse Ox O2 Delivery O2 Flow Rate FiO2 10/15/24 11:53 98.2 100 17 140/91 100 Room Air 10/15/24 14:48 0 21 Physical Exam Dictation General: awake, alert, NAD Head/Face: Normocephalic, atraumatic Eyes: PERRL, EOMI, vision at baseline ENT: oral cavity clear, TMs clear, pharyngeal erythema Neck: Trachea midline, supple, no nuchal rigidity Cardiovascular: RRR, normal S1/S2, No MRGs, no JVD Respiratory: CTAB, no respiratory distress, No rales or wheezes Abdomen: Soft, non-tender, non-distended, normal bowel sounds, no guarding or rebound. Skin: Warm, dry, normal turgor, no rash MS/Extremity: Pulses equal, no cyanosis, neurovascular intact, FROM Neuro: COAx4, GCS 15, strength 5/5, CN 2-12 intact, normal cerebellar exam, normal gait, Psych: Normal behavior, mood, and affect normal Results (Laboratory/Radiology) Laboratory/Radiology Laboratory Tests Test 10/15/24 12:05 10/15/24 12:12 White Blood Count 7.1 K/uL (4.8-10.8) Red Blood Count 4.08 MIL/uL (4.00-5.50) Hemoglobin 12.5 g/dL (12.0-16.0) Hematocrit 36.8 % (36-48) Mean Corpuscular Volume 90.2 fL (79-99) Mean Corpuscular Hemoglobin 30.6 pg (27.0-33.0) Mean Corpuscular Hemoglobin Concent 34.0 g/dL (32.0-36.0) Red Cell Distribution Width 12.9 % (11.0-15.5) Platelet Count 230 K/uL (130-400) Mean Platelet Volume 10.3 fL (7.5-10.5) Immature Granulocyte % (Auto) 0.3 % (0-1) Neutrophils (%) (Auto) 66.6 % (40.0-77.0) Lymphocytes (%) (Auto) 20.3 % (21.0-51.0) L Monocytes (%) (Auto) 10.1 % (3.0-13.0) Eosinophils (%) (Auto) 2.3 % (0.0-8.0) Basophils (%) (Auto) 0.4 % (0.0-5.0) Neutrophils # (Auto) 4.7 K/uL (1.8-7.7) Lymphocytes # (Auto) 1.4 K/uL (1.0-4.8) Monocytes # (Auto) 0.7 K/uL (0.1-1.0) Eosinophils # (Auto) 0.16 K/uL (0.00-0.70) Basophils # (Auto) 0.03 K/uL (0.00-0.20) Absolute Immature Granulocyte (auto 0.02 K/uL (0-1) Nucleated Red Blood Cells 0.0 % (0.0-0.19) Total Bilirubin 0.3 mg/dL (0.2-1.0) Direct Bilirubin 0.1 mg/dL (0.0-0.3) Aspartate Amino Transf (AST/SGOT) 31 U/L (10-37) Alanine Aminotransferase (ALT/SGPT) 36 U/L (12-78) Alkaline Phosphatase 82 U/L (50-136) Total Creatine Kinase 109 U/L (21-232) Troponin I High Sensitivity 4 ng/L (4-50) B-Type Natriuretic Peptide 6 pg/mL (0-100) Total Protein 6.8 g/dL (6.0-8.3) Albumin 3.5 g/dL (3.5-5.0) Influenza Type A Antigen Positive For Type A Influenza Type B Antigen Negative For Type B SARS-CoV-2 Antigen (Rapid) PRESUMPTIVE NEGATIVE Group A Streptococcus Rapid positive (NEGATIVE) *A Urine Color LIGHT-YELLOW (YELLOW) Urine Appearance CLEAR (CLEAR) Urine pH 6.5 (5.0-8.0) Urine Specific [place] 1.012 (1.001-1.031) Urine Protein NEGATIVE mg/dL (NEGATIVE) Urine Glucose (UA) NEGATIVE mg/dL (NEGATIVE) Urine Ketones NEGATIVE mg/dL (NEGATIVE) Urine Occult Blood SMALL (NEGATIVE) H Urine Nitrate NEGATIVE (NEGATIVE) Urine Bilirubin NEGATIVE mg/dL (NEGATIVE) Urine Urobilinogen 0.2 mg/dL (0.2-1.0) Urine Leukocyte Esterase NEGATIVE [place]/uL Urine RBC 11-25 /HPF (0-1) H Urine WBC 2-5 /HPF (0-1) H Urine Squamous Epithelial Cells FEW /HPF (0-2) Urine Bacteria MOD /HPF (None Seen) Labs Reviewed?: Yes ED Course ED Course Orders Procedure Category Date Status Time Influenza Type A & B, LAB 10/15/24 Complete Rapid 12:03 Cbc With Differential LAB 10/15/24 Complete 12:03 B-Type Natriuretic LAB 10/15/24 Complete Peptide 12:03 Hepatic Function Panel LAB 10/15/24 Complete 12:03 Urinalysis Profile LAB 10/15/24 Complete 12:03 Troponin I High LAB 10/15/24 Complete Sensitivity 12:03 12 Lead Ekg Tracing- EKG 10/15/24 Logged Technical 12:03 Creatine Kinase, Total LAB 10/15/24 Complete 12:03 Rapid (Group A Strep) LAB 10/15/24 Complete 12:03 Covid19 (Sars Antigen LAB 10/15/24 Complete Rapid) 12:03 Ondansetron 4mg Inj PHA 10/15/24 Complete (Zofran 4mg Inj) 12:30 0.9%Nacl 1000ml (Ns PHA 10/15/24 Complete 1000ml) 12:30 Ceftriaxone 1g Vial PHA 10/15/24 Complete (Rocephine 1g Inj) 14:00 Promethazine Hcl PHA 10/15/24 Complete (Phenergan) 14:00 Current Medications Medications (Trade) Dose Ordered Sig/Marysol Route PRN Reason Start Time Stop Time Status Last Admin Dose Admin Ceftriaxone Sodium (ROCEphine 1G INJ) 1 gm ONCE ONCE IVPB 10/15/24 14:00 10/15/24 14:01 DC 10/15/24 13:54 Ondansetron HCl (zoFRAN 4MG INJ) 4 mg ONCE ONCE IVP 10/15/24 12:30 10/15/24 12:31 DC 10/15/24 12:11 Promethazine HCl (Phenergan) 25 mg ONCE ONCE IM 10/15/24 14:00 10/15/24 14:01 DC 10/15/24 13:54 Sodium Chloride 1,000 ml @ 0 mls/hr ONCE ONCE IV 10/15/24 12:30 10/15/24 12:31 DC 10/15/24 12:11 Vital Signs Date Time Temp Pulse Resp B/P (MAP) Pulse Ox O2 Delivery O2 Flow Rate FiO2 10/15/24 14:48 98.8 82 18 131/77 97 Room Air* 0 21 10/15/24 11:53 98.2 100 17 140/91 100 Room Air Medical Decision Making MDM MDM: Differential diagnosis: Influenza, strep throat, viral syndrome Previous outside records reviewed: Old ER visits. Need for hospitalization: Patient does not meet criteria for hospitalization. Need for emergency major/minor surgery: No Patient's prior external medical records from other ER visits were reviewed by me as indicated. Prior testing and results from previous visits were reviewed. Prior tests were taken into account with medical decision making and resource utilization, independent historian/historians were used to obtain complete medical history. I independently interpreted the test that were performed, results were reviewed by me and considered findings on radiology if ordered. Medical management and examination interpretation discussions were had by me with other qualified healthcare professionals as indicated for the patient's care. DX & DISP Disposition: Discharge Departure Impression: Primary Impression: Strep throat Additional Impression: Influenza A Condition: Stable Scripts Oseltamivir Phosphate (Tamiflu) 75 Mg Cap 75 MG PO BID for 5 Days, #10 CAP Prov: JAY COSTA MD 10/15/24 Azithromycin (Azithromycin) 250 Mg Tablet 250 MG PO AD for cough for 5 Days, #6 TAB Prov: JAY COSTA MD 10/15/24 Referrals: SELF,REFERRAL (PCP) I have reviewed, & agreed with my scribe's, documentation. (Entered by Marine Ash, acting as a scribe for Dr. Costa) I personally scribed for JAY COSTA MD ([email or web address]) on 10/15/24 at 12:32. Electronically submitted by Marine Ash ([email or web address]). I personally scribed for JAY COSTA MD ([email or web address]) on 10/15/24 at 14:52. Electronically submitted by Marine Ash ([email or web address]). JAY COSTA MD Oct 15, 2024 12:32
[2024-10-15 12:33] LABS: COVID19 (SARS ANTIGEN RAPID) PRESUMPTIVE NEGATIVE (NEGATIVE)
[2024-10-15 12:34] LABS: INFLUENZA TYPE B Negative For Type B (NEGATIVE)
[2024-10-15 12:41] LABS: INFLUENZA TYPE A Positive For Type A (NEGATIVE)
[2024-10-15 12:42] LABS: RAPID GROUP A STREP positive (NEGATIVE)
[2024-10-15 12:50] LABS: B-TYPE NATRIURETIC PEPTIDE 6 pg/mL (0-100)
[2024-10-15] MEDS: cefTRIAXone 1G VIAL IVPB ONE (13:54)
[2024-10-15] MEDS: PROMETHAZINE HCL 25 MG/ML 1ML AMPULE IM ONE (13:54)
[2024-10-15] MEDS ORDERED: AZIT250T9 PO (14:19)
[2024-10-15] MEDS ORDERED: OSEL75 PO (14:19)
[2024-10-15 14:48] VITALS: BP 131/77; PULSE 82; RESP 18; TEMP 98.7; O2SAT 97
--- NOTE | 2024-10-15 14:54 | NUR ---
PT CALLING AN UBER TO TAKE HER HOME. PT ALSO STATES FEELING LESS NAUSEATED
--- NOTE | 2024-10-15 15:41 | EKG ---
[facility] Test Date: 2024-10-15 Test Time: 12:14:23 Pat Name: ARAVIND LEONE Department: [facility] Room: Gender: F Asset Protection Lead: [id number] : 1985 Requested By: JAY COSTA Order Number: [id number] Reading MD: Marianna Cortez Measurements Intervals [place] Rate: 86 P: 70 PA: 147 QRS: 63 QRSD: 63 T: 33 QT: 339 QTc: 405 Interpretive Statements Sinus rhythm Anteroseptal infarct, old Compared to ECG 12/19/2023 19:34:36 Sinus tachycardia no longer present Myocardial infarct finding still present Electronically Signed On 10-16-2024 10:02:42 [employer]SULT[employer] by Marianna Cortez Please click the below link to view image of tracing.
== END 2024-10-15 14:56 | disposition home or self-care (01) ==
LOC: EDH 11:52
DX: J02.0 Streptococcal pharyngitis (principal); Z20.822 Contact with and (suspected) exposure to COVID-19; J10.1 Influenza due to other identified influenza virus with other respiratory manifestations; R11.2 Nausea with vomiting, unspecified; R19.7 Diarrhea, unspecified; Z88.8 Allergy status to other drugs, medicaments and biological substances; Z91.041 Radiographic dye allergy status; Z91.018 Allergy to other foods; Z88.2 Allergy status to sulfonamides; Z90.710 Acquired absence of both cervix and uterus
CPT/HCPCS: 99284; 96374; 96361; 96375; 87426; 82550; 80076; 84484; 83880; 85025; 87880; 87804 ×2; 81001; 36415; 93005; 96372; J7030; J2550; J0696; J2405

== ENCOUNTER 2024-11-27 11:47 | Emergency (ER) | payer OTHER ==
[~2024-11-27] VITALS: Ht 160 cm; Wt 72.6 kg
[~2024-11-27 11:47] MED LIST changes: +AZIT250T9 PO; +OSEL75 PO
[2024-11-27 11:57] VITALS: TEMP 98.3
[2024-11-27] MEDS: LACTATED RINGERS 1000ML 1,000 ML IV ONE (12:31)
[2024-11-27] MEDS: ondanSETRON 4MG INJ IVP ONE ×2 (12:31→14:43)
[2024-11-27] MEDS: ketOROlac 15MG/ML VIAL (15MG/ML) IV ONE (12:32)
[2024-11-27] MEDS: morPHINE 4 MG SYG IVP ONE (12:32)
[2024-11-27 12:37] LABS: BASOPHILS # (AUTO) 0.04 K/uL (0.00-0.20); BASOPHILS % (AUTO) 0.5 % (0.0-5.0); EOSINOPHILS # (AUTO) 0.07 K/uL (0.00-0.70); EOSINOPHILS % (AUTO) 0.8 % (0.0-8.0); HEMATOCRIT 34.4 % (36-48); IMMATURE GRANULOCYTE ABSOLUTE 0.03 K/uL (0-1); LYMPHOCYTES # (AUTO) 2.1 K/uL (1.0-4.8); LYMPHOCYTES % (AUTO) 25.4 % (21.0-51.0); MEAN CORPUSCULAR HEMOGLOBIN 30.7 pg (27.0-33.0); MEAN CORPUSCULAR HGB CONC 33.4 g/dL (32.0-36.0); MEAN CORPUSCULAR VOLUME 91.7 fL (79-99); MONOCYTES # (AUTO) 0.4 K/uL (0.1-1.0); NEUTROPHILS # (AUTO) 5.7 K/uL (1.8-7.7); NEUTROPHILS % (AUTO) 67.9 % (40.0-77.0); PLATELET COUNT (AUTO) 295 K/uL (130-400); RED BLOOD CELL COUNT(AUTO) 3.75 MIL/uL (4.00-5.50); RED CELL DISTRIBUTION WIDTH 13.1 % (11.0-15.5); WHITE BLOOD COUNT (AUTO) 8.4 K/uL (4.8-10.8)
[2024-11-27 12:40] LABS: APPEARANCE,URINE CLEAR (CLEAR); BILIRUBIN,URINE NEGATIVE (NEGATIVE); COLOR,URINE LIGHT-YELLOW (YELLOW); GLUCOSE, URINE (UA) NEGATIVE (NEGATIVE); KETONES,URINE 5 mg/dL (NEGATIVE); LEUKOCYTE ESTERASE ,URINE NEGATIVE Leu/uL (NEGATIVE); NITRATE,URINE NEGATIVE (NEGATIVE); OCCULT BLOOD,URINE SMALL (NEGATIVE); PH,URINE 6.5 (5.0-8.0); PROTEIN,URINE NEGATIVE (NEGATIVE); UROBILINOGEN,URINE 0.2 mg/dL (0.2-1.0)
[2024-11-27 12:42] LABS: ADD UA MICROSCOPIC YES
[2024-11-27 12:43] LABS: BACTERIA,URINE RARE /HPF (None Seen); MUCUS,URINE RARE LPF (None Seen); SQUAMOUS EPITHELIAL CELL,UR RARE /HPF (0-2); WBC,URINE 0-1 /HPF (0-1)
[2024-11-27 12:48] LABS: CREATININE 0.6 mg/dL (0.5-1.0); POTASSIUM 3.4 mmol/L (3.5-5.1)
[2024-11-27 13:04] LABS: BILIRUBIN,DIRECT 0.1 mg/dL (0.0-0.3); BILIRUBIN,TOTAL 0.3 mg/dL (0.2-1.0); TOTAL PROTEIN, SERUM 7.5 g/dL (6.0-8.3)
[2024-11-27] MEDS: hydroMORPHone 0.5 MG SYG (0.5MG/0.5ML) IVP ONE (13:28)
[2024-11-27] MEDS: ORPHENADRINE 60MG/2ML IM ONE (13:28)
[2024-11-27 13:48] LABS: ERYTHROCYTE SEDIMENTATION RATE 10 MM/HR (0-20)
--- NOTE | 2024-11-27 13:50 | HMCIMG ---
Exam Type: CT ABDOMEN/PELVIS W/O CONTRAST Clinical Information: r/o stone vs lower back pain Comparison: None CT Dose Index (CTDI): 10.20 mGy Dose Length Product (DLP): 530.00 total mGy-cm PROTOCOL: Routine noncontrast helical scanning of the abdomen and pelvis was performed at 5mm collimation. Findings: Right-sided nonobstructive tiny, 1 to 2 mm renal calculi are seen. There is no hydronephrosis. No worrisome renal masses are seen. The lung bases are clear. The stomach is unremarkable. It shows no wall thickening. No gross ulceration is seen. It is not overly distended. There are no surrounding inflammatory changes. No wall lesions are identified to suggest cancer. The spleen is unremarkable. It is not enlarged. The pancreas shows normal anatomy. It is not fatty replaced. It shows no lesions. The pancreatic duct is not dilated. The gallbladder is unremarkable. It shows no cholelithiasis. The gallbladder wall is normal in thickness. There is no pericholecystic fluid. The is no acute or chronic inflammation noted. The adrenal glands are unremarkable. There is no enlargement. No lesions are noted. The liver is unremarkable. It shows no focal masses. The appendix is unremarkable. It shows no evidence of inflammation. No appendicolith is seen. The small bowel is unremarkable. There is no evidence of dilatation to suggest obstruction. No evidence of adynamic ileus is seen. There is no small bowel wall thickening to suggest enteritis. The colon is unremarkable. The urinary bladder is unremarkable. There is no wall thickening to suggest tumor or inflammation. There are no intraluminal calculi. There are no diverticula. There is no evidence of chronic bladder outlet obstruction. There is no evidence of urinary bladder distention to suggest urinary retention. The other pelvic structures are unremarkable. The bony and vascular structures are unremarkable for the patient's age. IMPRESSION: Right nonobstructive nephrolithiasis. This study was performed using dose reduction techniques to include automated exposure control and/or adjustment of the mA and/or kV according to patient size.
[2024-11-27] MEDS ORDERED: IBUP-2077 PO (14:30)
[2024-11-27] MEDS ORDERED: ONDA-243 PO (14:30)
[2024-11-27] MEDS ORDERED: HYDR-4060 PO (14:30)
--- NOTE | 2024-11-27 14:32 | ERN ---
General Chief Complaint: Back Injury Stated Complaint: TINGLING ALL OVER BODY, PAIN ALL OVER BODY History of Present Illness Initial Comments 39-year-old female who presents for lower back pain radiates to her legs. Has been present for a week or so but it is increasing now. Described as electric shocks. No neurovascular compromise. She does report some dysuria and thinks she may have urinary infection. He reports he has had pyelonephritis in the past. No fevers, vomiting or systemic illness. She has a history of lupus. Denies . Allergies: Coded Allergies: Fish Containing Products (Unverified Allergy, Severe, ANAPHYLAXIS, 12/22/23) pineapple (Unverified Allergy, Severe, anaphylaxis, 12/22/23) shellfish derived (Unverified Allergy, Severe, anaphylaxis, 12/22/23) artichoke (Unverified Allergy, Intermediate, 12/21/23) iodine (Unverified Allergy, Intermediate, irritation, 12/22/23) mushroom (Unverified Allergy, Intermediate, 12/21/23) Sulfa (Sulfonamide Antibiotics) (Unverified Allergy, Unknown, 12/09/23) Home Meds Active Scripts Oseltamivir Phosphate (Tamiflu) 75 Mg Cap, 75 MG PO BID for 5 Days, #10 CAP Prov:JAY COSTA MD 10/15/24 Azithromycin (Azithromycin) 250 Mg Tablet, 250 MG PO AD for cough for 5 Days, #6 TAB Prov:JAY COSTA MD 10/15/24 Ibuprofen (Ibuprofen) 800 Mg Tablet, 800 MG PO Q8H PRN for PAIN, #30 TAB 0 Refills Prov:MAGDALENO QUIJANO 06/30/24 Metoclopramide HCl (Reglan) 10 Mg Tablet, 10 MG PO QIDP PRN for NAUSEA, #40 TAB 2 Refills Prov:SPENCER FINCH Sr., MD 02/05/24 Famotidine (Pepcid) 20 Mg Tablet, 20 MG PO BID, #60 TAB 2 Refills Prov:SPENCER FINCH Sr., MD 02/05/24 Ketorolac Tromethamine (Toradol) 10 Mg Tab, 10 MG PO TIDP PRN for PAIN LEVEL 7 TO 10, #5 TAB 1 Refill Prov:SPENCER FINCH Sr., MD 02/05/24 Tamsulosin HCl (Flomax) 0.4 Mg Cap.er.24h, 0.4 MG PO DAILY, #5 CAPSULE. 1 Refill Prov:SPENCER FINCH Sr., MD 02/05/24 Tamsulosin HCl (Flomax) 0.4 Mg Cap.er.24h, 0.4 MG PO DAILY for 15 Days, #15 CAPS ULE. Prov:YVETTE MENDEZ NP 12/24/23 Phenazopyridine HCl (Pyridium) 200 Mg Tablet, 200 MG PO TID for painful urination for 5 Days, #15 TAB 0 Refills Prov:FRANCISCO SWIFT [employer]TURE MAKER 12/09/23 Ibuprofen (Ibuprofen) 600 Mg Tablet, 600 MG PO Q6H PRN for PAIN, #30 TAB Prov:FRANCISCO SWIFT [employer] MAKER 12/09/23 Ondansetron (Ondansetron Odt) 4 Mg Tab.rapdis, 4 MG PO Q6HPRN PRN for nausea, #16 TAB 0 Refills Prov:FRANCISCO SWIFT NP 12/09/23 Past Medical History Past Medical History: UTI Medical History Other: LUPUS, OVARINA CA Past Surgical History: Unknown Surgical History Other: PARTIAL HYSTERECTOMY Social History Social History: Negative Female( History) History: Not Applicable ROS Dictation CONSTITUTIONAL: No chills, no fever, no weakness, no diaphoresis, no malaise. HEAD/FACE: No signs of trauma. EENT: No eye pain, no blurred vision, no tearing, no double vision, no ear pain, no ear discharge, no nose pain, no nasal congestion, no throat pain, no throat swelling, no mouth pain. RESPIRATORY: No cough, no orthopnea, no SOB, no stridor, no wheezing. CARDIOVASCULAR: No chest pain, no edema, no palpitations, no syncope. GASTROINTESTINAL/ABDOMINAL: No abdominal pain, no constipation, no diarrhea, no nausea, no vomiting. GENITOURINARY: No abnormal discharge, no dysuria, no frequent urination, no hematuria. No complaints of pain in the genitals. MUSCULOSKELETAL: Lower back pain INTEGUMENTARY: No change in color, no change in hair/nails, no dryness, no lesion, no lumps, no rash. NEUROLOGICAL/PSYCH: No anxiety, not depressed, no emotional problem, no headache, no numbness, no pre-existing deficit, no history of seizures, no tremors, no weakness. HEMATOLOGIC/LYMPHATIC: Not anemic, no history of blood clots, no apparent bleeding, no bruising, glands not swollen. All Systems Negative, Except as Noted. Physical Exam Physical Exam Dictation VITAL SIGNS: Reviewed. GENERAL APPEARANCE: Alert, oriented x3, moderate distress due to pain HEAD AND FACE: Non-traumatic. EYES: PERRL, pink conjunctivas, eyelid no trauma, anterior chamber clear. EARS: Pinnas intact and no signs of trauma or erythema. Ear canals clear and no discharge. TMs no erythema. NOSE: No discharge, no bleeding. OROPHARYNX: Mouth normal, teeth no caries, tongue pink. Pharynx clear, no erythema. Tonsils no exudates, no abscesses noted. Mucous membrane moist. NECK: Supple, non-tender, no thyromegaly, no masses, no JVD, no bruits. BREAST: Deferred. CHEST: No tenderness, no crepitus, no paradoxical movement, no retractions. LUNGS: Clear, well-ventilated, symmetric, no rales, no wheezing, no rhonchi, no stridor, good breath sounds bilaterally. HEART: Regular rate, regular rhythm, no murmur, no gallops. VASCULAR: No peripheral edema. ABDOMEN: Soft, positive bowel sounds, nondistended, no guarding, nontender, no rebound, no masses no hepatomegaly, no splenomegaly, no Colmenares's sign, no hernias. RECTAL: Deferred. GENITAL: Deferred. NEUROLOGICAL: Normal speech, gross motor function intact, gross sensory function intact. MUSCULOSKELETAL: Neck nontender, full range of motion, back nontender, full range of motion. EXTREMITIES: Nontender, full range of motion. SKIN: Color pink, dry, no turgor, no rash, no lacerations, no abrasions, no contusions. LYMPHATICS: Deferred. Results Laboratory and Microbiology Lab and Micro Result Laboratory Tests Test 11/27/24 12:24 11/27/24 12:28 Urine Color LIGHT-YELLOW (YELLOW) Urine Appearance CLEAR (CLEAR) Urine pH 6.5 (5.0-8.0) Urine Specific [place] 1.029 (1.001-1.031) Urine Protein NEGATIVE mg/dL (NEGATIVE) Urine Glucose (UA) NEGATIVE mg/dL (NEGATIVE) Urine Ketones 5 mg/dL (NEGATIVE) H Urine Occult Blood SMALL (NEGATIVE) H Urine Nitrate NEGATIVE (NEGATIVE) Urine Bilirubin NEGATIVE mg/dL (NEGATIVE) Urine Urobilinogen 0.2 mg/dL (0.2-1.0) Urine Leukocyte Esterase NEGATIVE [place]/uL Urine RBC 11-25 /HPF (0-1) H Urine WBC 0-1 /HPF (0-1) Urine Squamous Epithelial Cells RARE /HPF (0-2) Urine Bacteria RARE /HPF (None Seen) White Blood Count 8.4 K/uL (4.8-10.8) Red Blood Count 3.75 MIL/uL (4.00-5.50) L Hemoglobin 11.5 g/dL (12.0-16.0) L Hematocrit 34.4 % (36-48) L Mean Corpuscular Volume 91.7 fL (79-99) Mean Corpuscular Hemoglobin 30.7 pg (27.0-33.0) Mean Corpuscular Hemoglobin Concent 33.4 g/dL (32.0-36.0) Red Cell Distribution Width 13.1 % (11.0-15.5) Platelet Count 295 K/uL (130-400) Mean Platelet Volume 10.6 fL (7.5-10.5) H Immature Granulocyte % (Auto) 0.4 % (0-1) Neutrophils (%) (Auto) 67.9 % (40.0-77.0) Lymphocytes (%) (Auto) 25.4 % (21.0-51.0) Monocytes (%) (Auto) 5.0 % (3.0-13.0) Eosinophils (%) (Auto) 0.8 % (0.0-8.0) Basophils (%) (Auto) 0.5 % (0.0-5.0) Neutrophils # (Auto) 5.7 K/uL (1.8-7.7) Lymphocytes # (Auto) 2.1 K/uL (1.0-4.8) Monocytes # (Auto) 0.4 K/uL (0.1-1.0) Eosinophils # (Auto) 0.07 K/uL (0.00-0.70) Basophils # (Auto) 0.04 K/uL (0.00-0.20) Absolute Immature Granulocyte (auto 0.03 K/uL (0-1) Nucleated Red Blood Cells 0.0 % (0.0-0.19) Erythrocyte Sedimentation Rate 10 MM/HR (0-20) Sodium Level 139 mmol/L (136-145) Potassium Level 3.4 mmol/L (3.5-5.1) L Chloride Level 102 mmol/L (101-111) Carbon Dioxide Level 28 mmol/L (21-32) Blood Urea Nitrogen 16 mg/dL (7-18) Creatinine 0.6 mg/dL (0.5-1.0) Glomerular Filtration Rate Calc 116 mL/min (>90) Random Glucose 124 mg/dL (70-105) H Lactic Acid Level 1.1 mmol/L (0.8-2.5) Total Calcium 9.1 mg/dL (8.5-10.1) Total Bilirubin 0.3 mg/dL (0.2-1.0) Direct Bilirubin 0.1 mg/dL (0.0-0.3) Aspartate Amino Transf (AST/SGOT) 19 U/L (10-37) Alanine Aminotransferase (ALT/SGPT) 21 U/L (12-78) Alkaline Phosphatase 71 U/L (50-136) C-Reactive Protein, Quantitative 2.50 mg/L (0.5-3.0) Total Protein 7.5 g/dL (6.0-8.3) Albumin 4.0 g/dL (3.5-5.0) Lipase 35 U/L (16-77) Procalcitonin < 0.05 ng/mL (0.05-0.5) L Human Chorionic Gonadotropin, Quant 0 mIU/mL (0-5) MDM CC: Lower back pain tingling all over body possible urinary symptoms Historian: Patient Comorbidities: Lupus, history of ovarian cancer Vital signs stable Differential diagnosis: Musculoskeletal pain, pyelonephritis, other Labs (independently ordered and interpreted by me ): The CBC is normal. Mild normocytic anemia hemoglobin 11.5. BNP is normal. Lactic acid normal. Liver function tests normal. CRP normal. Lipase normal. Procalcitonin normal. HCG is negative. Sed rate 10, normal. Urinalysis shows small blood otherwise unremarkable. CT abdomen and pelvis without contrast ( independently interpreted by me ): right-sided kidney stone. There is a nonobstructive tiny 1-2 mm renal calculi on the right. No hydronephrosis. No worrisome masses. Here in the ER the patient received 1 L of LR, 50 mg of Toradol, 4 mg of morphine, 60 mg orphenadrine, and a re-dosing 25 mg IV Dilaudid. On re-evaluation patient was pain is controlled, no signs of infection, no signs of SIRS or sepsis, stable labs. She is p.o. tolerant. We will discharge with pain control, recommend urology follow up as needed. We will give a prescription for pain control. Patient agreeable to the plan. ED Course Orders Procedure Category Date Status Time Cbc With Differential LAB 11/27/24 Complete 12:19 Basic Metabolic Panel LAB 11/27/24 Complete 12:19 Hcg,Quantitative LAB 11/27/24 Complete 12:19 Urinalysis Profile LAB 11/27/24 Complete 12:19 Lactated Ringers PHA 11/27/24 Complete 1000ml (Lactated 12:30 Crp Quantitative LAB 11/27/24 Complete 12:19 Procalcitonin LAB 11/27/24 Complete 12:19 Erythrocyte LAB 11/27/24 Complete Sedimentation Rate 12:19 Lactic Acid LAB 11/27/24 Complete 12:19 Blood Cult CASA 11/27/24 In Process 12:19 Ketorolac PHA 11/27/24 Complete Tromethamine 15mg/Ml 12:30 Morphine 4mg Syg PHA 11/27/24 Complete (Morphine 4mg Syg) 12:30 Lipase LAB 11/27/24 Complete 12:19 Hepatic Function Panel LAB 11/27/24 Complete 12:19 Ondansetron 4mg Inj PHA 11/27/24 Complete (Zofran 4mg Inj) 12:30 Ct Abdomen/Pelvis W/O CT 11/27/24 Resulted Contrast 13:15 Orphenadrine Citrate PHA 11/27/24 Complete (Norflex) 13:30 Hydromorphone 0.5mg PHA 11/27/24 Complete Syg (Dilaudid 0.5mg 13:30 Current Medications Medications (Trade) Dose Ordered Sig/[place] Route PRN Reason Start Time Stop Time Status Last Admin Dose Admin Hydromorphone HCl (DiLAUDid 0.5MG INJ) 0.5 mg ONCE ONCE IVP 11/27/24 13:30 11/27/24 13:31 DC 11/27/24 13:28 Ketorolac Tromethamine (toRADol) 15 mg ONCE ONCE IV 11/27/24 12:30 11/27/24 12:31 DC 11/27/24 12:32 Lactated Ringer's 1,000 ml @ 0 mls/hr ONCE ONCE IV 11/27/24 12:30 11/27/24 12:31 DC 11/27/24 12:31 Morphine Sulfate (morPHINE 4MG SYG) 4 mg ONCE ONCE IVP 11/27/24 12:30 11/27/24 12:31 DC 11/27/24 12:32 Ondansetron HCl (zoFRAN 4MG INJ) 4 mg ONCE ONCE IVP 11/27/24 12:30 11/27/24 12:31 DC 11/27/24 12:31 Orphenadrine Citrate (Norflex) 60 mg ONCE ONCE IM 11/27/24 13:30 11/27/24 13:31 DC 11/27/24 13:28 Vital Signs Date Time Temp Pulse Resp B/P (MAP) Pulse Ox O2 Delivery O2 Flow Rate FiO2 11/27/24 11:57 98.2 79 16 149/96 100 Room Air DX & DISP Disposition: Discharge Departure Impression: Primary Impression: Right nephrolithiasis Condition: Stable Scripts Hydrocodone/Acetaminophen (Hydrocodon-Acetaminophen 5-325) 5 Mg-325 Mg Tablet 1 TAB PO TIDP PRN for pain for 5 Days, #15 TAB 0 Refills Prov: OLMAN SHARMA DO 11/27/24 Ondansetron (Ondansetron Odt) 4 Mg Tab.rapdis 1 TAB PO Q6HPRN PRN for nausea/vomiting for 4 Days, #16 TAB 0 Refills Prov: OLMAN SHARMA DO 11/27/24 Ibuprofen (Ibuprofen 800 mg Tab) 800 Mg Tab 800 MG PO Q6H PRN for PAIN, #30 TAB Prov: OLMAN SHARMA DO 11/27/24 Additional Instructions: You have a 2 mm kidney stone on the right side. This is causing your symptoms. Your blood work (CBC, BMP, lipase, BNP, lactic acid, liver function tests, CRP, procalcitonin, ESR, hCG) is unremarkable. Your hemoglobin is 11.5. The CT scan shows the right-sided kidney stone. There was no otherwise no abnormalities. Your urinalysis has a small amount of blood consistent with a kidney stone. There was no signs of bacteria or infection. As we discussed, most kidney stones of the size pass on their own without any procedures. I have prescribed ibuprofen and [place] tabs to use as needed for significant pain. Use as needed. I have prescribed ondansetron dissolvable tabs to use as needed for nausea and vomiting. Be sure to drink plenty of liquids. Avoid high salt and high processed foods. You may need to follow up with the urologist. I have given you a referral. Please make an appointment as an outpatient. Please return to the emergency department if you have any concerns. Referrals: SELF,REFERRAL (PCP) RICK RAIN MD, RYAN E DO Nov 27, 2024 14:32
[2024-11-27 14:49] VITALS: BP 116/65; PULSE 72; RESP 20; O2SAT 99
== END 2024-11-27 14:51 | disposition home or self-care (01) ==
LOC: EDH 11:47
DX: N20.0 Calculus of kidney (principal); R10.2 Pelvic and perineal pain; Z79.899 Other long term (current) drug therapy; Z88.2 Allergy status to sulfonamides; Z88.8 Allergy status to other drugs, medicaments and biological substances; Z91.041 Radiographic dye allergy status
CPT/HCPCS: 99285; 74176; 96374; 96375; 96361; 80076; 80048; 84702; 83690; 85025; 85651; 87040 ×2; 83605; 86140; 81001; 36415; 84145; 96372; J1885; J1171; J7120; J2405; J2270; J2360

== ENCOUNTER 2024-12-11 16:50 | Emergency (ER) | payer OTHER ==
[~2024-12-11] VITALS: Ht 160 cm; Wt 59.0 kg
[~2024-12-11 16:50] MED LIST changes: +HYDR-4060 PO; +IBUP-2077 PO
--- NOTE | 2024-12-11 17:19 | ERN ---
ED Note History of Present Illness Stated Complaint: HEADACHE Chief Complaint: Headache Time Seen by MD: 17:03 Time Seen by Midlevel: 17:03 Dictation: The patient is a 39-year-old female with a history of lupus not on any current medication who presents to the emergency department with complaints of frontal headache, nausea and one episode of nonbloody vomiting onset 30 minutes ago. Patient also reports some chest pain and shortness of breath. Denies any fevers. Allergies: Coded Allergies: Fish Containing Products (Unverified Allergy, Severe, ANAPHYLAXIS, 12/22/23) pineapple (Unverified Allergy, Severe, anaphylaxis, 12/22/23) shellfish derived (Unverified Allergy, Severe, anaphylaxis, 12/22/23) artichoke (Unverified Allergy, Intermediate, 12/21/23) iodine (Unverified Allergy, Intermediate, irritation, 12/22/23) mushroom (Unverified Allergy, Intermediate, 12/21/23) Sulfa (Sulfonamide Antibiotics) (Unverified Allergy, Unknown, 12/09/23) Home Meds Active Scripts Hydrocodone/Acetaminophen (Hydrocodon-Acetaminophen 5-325) 5 Mg-325 Mg Tablet, 1 TAB PO TIDP PRN for pain for 5 Days, #15 TAB 0 Refills Prov:OLMAN SHARMA DO 11/27/24 Ondansetron (Ondansetron Odt) 4 Mg Tab.rapdis, 1 TAB PO Q6HPRN PRN for nausea/vomiting for 4 Days, #16 TAB 0 Refills Prov:OLMAN SHARMA DO 11/27/24 Ibuprofen (Ibuprofen 800 mg Tab) 800 Mg Tab, 800 MG PO Q6H PRN for PAIN, #30 TAB Prov:OLMAN SHARMA DO 11/27/24 Oseltamivir Phosphate (Tamiflu) 75 Mg Cap, 75 MG PO BID for 5 Days, #10 CAP Prov:JAY COSTA MD 10/15/24 Azithromycin (Azithromycin) 250 Mg Tablet, 250 MG PO AD for cough for 5 Days, #6 TAB Prov:JAY COSTA MD 10/15/24 Ibuprofen (Ibuprofen) 800 Mg Tablet, 800 MG PO Q8H PRN for PAIN, #30 TAB 0 Refills Prov:MAGDALENO QUIJANO 06/30/24 Metoclopramide HCl (Reglan) 10 Mg Tablet, 10 MG PO QIDP PRN for NAUSEA, #40 TAB 2 Refills Prov:SPENCER FINCH Sr., MD 02/05/24 Famotidine (Pepcid) 20 Mg Tablet, 20 MG PO BID, #60 TAB 2 Refills Prov:SPENCER FINCH Sr., MD 02/05/24 Ketorolac Tromethamine (Toradol) 10 Mg Tab, 10 MG PO TIDP PRN for PAIN LEVEL 7 TO 10, #5 TAB 1 Refill Prov:SPENCER FINCH Sr., MD 02/05/24 Tamsulosin HCl (Flomax) 0.4 Mg Cap.er.24h, 0.4 MG PO DAILY, #5 CAPSULE.DR 1 Refill Prov:SPENCER FINCH Sr., MD 02/05/24 Tamsulosin HCl (Flomax) 0.4 Mg Cap.er.24h, 0.4 MG PO DAILY for 15 Days, #15 CAPSULE. Prov:YVETTE MENDEZ [employer]USTIC FENCE BUILDER 12/24/23 Phenazopyridine HCl (Pyridium) 200 Mg Tablet, 200 MG PO TID for painful urination for 5 Days, #15 TAB 0 Refills Prov:FRANCISCO SWIFT RUSTIC FENCE BUILDER 12/09/23 Ibuprofen (Ibuprofen) 600 Mg Tablet, 600 MG PO Q6H PRN for PAIN, #30 TAB Prov:FRANCISCO SWIFT RUSTIC FENCE BUILDER 12/09/23 Ondansetron (Ondansetron Odt) 4 Mg Tab.rapdis, 4 MG PO Q6HPRN PRN for nausea, #16 TAB 0 Refills Prov:FRANCISCO SWIFT R[employer]IC FENCE BUILDER 12/09/23 Past Medical History Past Medical History: UTI Additional Past Medical Hx: LUPUS, OVARINA [place] Surgical History: Unknown Surgical History Other: PARTIAL HYSTERECTOMY Social History: Negative History: Not Applicable RN Note Reviewed/Agreed w/PFSH: Yes Review of System Dictation Constitutional: Negative for fever,chills, and weight loss Eyes: Negative for injury, pain,redness, and discharge ENT: Negative for injury,pain or swelling Cardiovascular: Negative for palpitations, and edema positive for chest pain Respiratory: Negative for cough, and wheezing, positive for shortness of breath Abdomen/GI: Negative for abdominal pain,, diarrhea, and constipation positive for nausea or vomiting Back: Negative for injury and pain : Negative for injury, bleeding and discharge MS/Extremity: Negative for injury and deformity Skin: Negative for rash, and discoloration Neuro: Negative for weakness, numbness, tingling, and seizure positive for headache Psych: Negative for suicide ideation, homicidal ideation, and hallucinations Initial Vital Sign VS Vital Signs Date Time Temp Pulse Resp B/P (MAP) Pulse Ox O2 Delivery O2 Flow Rate FiO2 12/11/24 16:52 98.6 85 20 138/101 99 Room Air 12/11/24 17:40 0 21 Physical Exam Dictation Vital Signs reviewed General Appearance: Alert, oriented x 3, no acute distress, well developed, n ourished. Head and Face: non-traumatic. Eyes: PERRL, pink conjunctivas, eyelid no trauma, anterior chamber with arcus senilis. Ears: Pinnas intact and no signs of trauma or erythema ear canals clear and no discharge TM no erythema Nose: No discharge, no bleeding. Oropharynx: Mouth normal, tongue pink. pharynx clear,no erythema, tonsils no exudates, no abscesses noted, mucous m embrane moist Neck: Supple, non-tender, no thyromegaly, no masses, no JVD, no bruits Breast:Deferred Chest:No tenderness, no crepitus, no paradoxical movement, no retractions Lungs:Clear, well-ventilated, symmetric, no rales, no wheezing, no rhonchi, no stridor, good breath sounds bilaterally Heart: Regular rate, regular rhythm, no murmur, no gallops Vascular: no peripheral edema, Abdomen: Soft, positive bowel sounds, nondistended, no guarding, nontender, no rebound, no masses no hepatomegaly, no splenomegaly, no Colmenares's sign, no hernias. Rectal: Deferred Genital: Deferred Neurological: Normal speech, motor function intact, sensory function intact ,no slurred speech, no facial droop, upper extremities equal in strength, lower extremities equal in strength Musculoskeletal: Neck nontender, full range of motion, back nontender, full range of motion, Extremities: nontender, full range of motion Skin: Color pink, dry, no turgor, no rash, no lacerations, no abrasions, no contusions. Lymphatic: Deferred Results (Laboratory/Radiology) Laboratory/Radiology Laboratory Tests Test 12/11/24 18:11 12/11/24 19:00 12/11/24 19:10 White Blood Count 8.6 K/uL (4.8-10.8) Red Blood Count 4.10 MIL/uL (4.00-5.50) Hemoglobin 12.5 g/dL (12.0-16.0) Hematocrit 38.6 % (36-48) Mean Corpuscular Volume 94.1 fL (79-99) Mean Corpuscular Hemoglobin 30.5 pg (27.0-33.0) Mean Corpuscular Hemoglobin Concent 32.4 g/dL (32.0-36.0) Red Cell Distribution Width 13.0 % (11.0-15.5) Platelet Count 262 K/uL (130-400) Mean Platelet Volume 10.4 fL (7.5-10.5) Immature Granulocyte % (Auto) 0.2 % (0-1) Neutrophils (%) (Auto) 65.9 % (40.0-77.0) Lymphocytes (%) (Auto) 26.0 % (21.0-51.0) Monocytes (%) (Auto) 6.5 % (3.0-13.0) Eosinophils (%) (Auto) 0.9 % (0.0-8.0) Basophils (%) (Auto) 0.5 % (0.0-5.0) Neutrophils # (Auto) 5.6 K/uL (1.8-7.7) Lymphocytes # (Auto) 2.2 K/uL (1.0-4.8) Monocytes # (Auto) 0.6 K/uL (0.1-1.0) Eosinophils # (Auto) 0.08 K/uL (0.00-0.70) Basophils # (Auto) 0.04 K/uL (0.00-0.20) Absolute Immature Granulocyte (auto 0.02 K/uL (0-1) Nucleated Red Blood Cells 0.0 % (0.0-0.19) Sodium Level 140 mmol/L (136-145) Potassium Level 3.5 mmol/L (3.5-5.1) Chloride Level 103 mmol/L (101-111) Carbon Dioxide Level 29 mmol/L (21-32) Blood Urea Nitrogen 13 mg/dL (7-18) Creatinine 0.5 mg/dL (0.5-1.0) Glomerular Filtration Rate Calc 122 mL/min (>90) Random Glucose 95 mg/dL (70-105) Total Calcium 8.7 mg/dL (8.5-10.1) Magnesium Level 1.70 mg/dL (1.80-2.40) L Total Creatine Kinase 89 U/L (21-232) Troponin I High Sensitivity 5.0 ng/L (4-50) 5 ng/L (4-50) Lipase 30 U/L (16-77) Serum Test, Qualitative NEGATIVE (NEGATIVE) Urine Color LIGHT-YELLOW (YELLOW) Urine Appearance CLOUDY (CLEAR) H Urine pH 7.0 (5.0-8.0) Urine Specific [place] 1.011 (1.001-1.031) Urine Protein NEGATIVE mg/dL (NEGATIVE) Urine Glucose (UA) NEGATIVE mg/dL (NEGATIVE) Urine Ketones NEGATIVE mg/dL (NEGATIVE) Urine Occult Blood +- (TRACE) (NEGATIVE) H Urine Nitrate NEGATIVE (NEGATIVE) Urine Bilirubin NEGATIVE mg/dL (NEGATIVE) Urine Urobilinogen 0.2 mg/dL (0.2-1.0) Urine Leukocyte Esterase NEGATIVE [place]/uL Urine RBC 6-10 /HPF (0-1) H Urine WBC 0-1 /HPF (0-1) Urine Squamous Epithelial Cells FEW /HPF (0-2) Urine Other Crystals (Auto) 2 /HPF (None Seen) Urine Bacteria RARE /HPF (None Seen) Urine Yeast FEW /HPF (None Seen) REASON: headache, n/v ORDERING PHYSICIAN: NAHED BAUTISTA ACTIVITIES DIRECTOR SCOUTING PROCEDURE: HEAD WO - CT HEAD/BRAIN W/O CONTRAST CT HEAD WITHOUT CONTRAST INDICATION: Nausea and vomiting TECHNIQUE: Noncontrast axial helical CT images from the vertex through the skull base using 5 mm slice thickness without contrast material. CT was performed with one or more of the following dose reduction techniques: Automated exposure control, adjustment of the mA and/or kV according to patient size, or use of iterative reconstruction technique. COMPARISON: None FINDINGS: The cerebral and cerebellar hemispheres are age-appropriate in appearance. No evidence for abnormal extra-axial fluid collections or masses. The ventricles and sulci are normal in size and configuration. No evidence for intracranial parenchymal, epidural, or subdural hemorrhage, mass effect or midline shift. The rey-white matter differentiation is well preserved. No secondary evidence to suggest acute ischemia. The brainstem and cerebellum appear normal. The visualized orbits appear unremarkable. The visible paranasal sinuses and mastoid air cells are clear. The calvarium appears normal. IMPRESSION: No acute intracranial process identified. REASON: cp ORDERING PHYSICIAN: NAHED BAUTISTA PROCEDURE: CXR1VW - CHEST 1VW PORTABLE CHEST RADIOGRAPH INDICATION: cp COMPARISON: 12/19/23 FINDINGS: Heart size is normal. The pulmonary vascularity and laura appear normal. No abnormal pulmonary parenchymal opacity or consolidation identified. No significant pleural effusion noted. No pneumothorax detected. IMPRESSION: Right lower lung nipple shadowing favored, but lateral view can be obtained to confirm. No radiographic evidence for any acute cardiopulmonary process. Labs Reviewed?: Yes EKG: (+) rhythm (Sinus rhythm) EKG Comment: Date: Time:1727 Ventricular rate:76 HI interval:157 QRS duration:78 QT/QTc:401 EKG interpretation: Sinus rhythm Reviewed by ED Attending no STEMI ED Course ED Course Orders Procedure Category Date Status Time Cbc With Differential LAB 12/11/24 Complete 17:09 Chest 1vw RAD 12/11/24 Resulted 17:09 12 Lead Ekg Tracing- EKG 12/11/24 Logged Technical 17:09 0.9%Nacl 1000ml (Ns PHA 12/11/24 Complete 1000ml) 17:30 Magnesium LAB 12/11/24 Complete 17:09 Urinalysis Profile LAB 12/11/24 Complete 17:09 Basic Metabolic Panel LAB 12/11/24 Complete 17:09 Testing, LAB 12/11/24 Complete Serum Hcg 17:09 Acetaminophen 500mg PHA 12/11/24 Complete Tab (Tylenol 500mg T 17:30 Metoclopramide 10 PHA 12/11/24 Complete Mg/2 Ml Vial (Reglan 1 17:30 Diphenhydramine Hcl PHA 12/11/24 Complete (Benadryl Inj) 17:30 Ct Head/Brain W/O CT 12/11/24 Resulted Contrast 17:16 Cardiac Panel LAB 12/11/24 Complete 17:09 Lipase LAB 12/11/24 Complete 17:09 Magnesium Oxide PHA 12/11/24 Complete (Mag-Ox) 19:00 Troponin I High LAB 12/11/24 Complete Sensitivity 18:56 Current Medications Medications (Trade) Dose Ordered Sig/Marysol Route PRN Reason Start Time Stop Time Status Last Admin Dose Admin Acetaminophen (TYLenol 500MG TAB) 1,000 mg ONCE ONCE PO 12/11/24 17:30 12/11/24 17:31 DC 12/11/24 17:38 Diphenhydramine HCl (BENAdryl INJ) 25 mg ONCE ONCE IV 12/11/24 17:30 12/11/24 17:31 DC 12/11/24 17:38 Magnesium Oxide (Mag-Ox) 400 mg ONCE ONCE PO 12/11/24 19:00 12/11/24 19:01 DC 12/11/24 19:11 Metoclopramide HCl (regLAN 10MG IV) 10 mg ONCE ONCE IVP 12/11/24 17:30 12/11/24 17:31 DC 12/11/24 17:38 Sodium Chloride 1,000 ml @ 0 mls/hr ONCE ONCE IV 12/11/24 17:30 12/11/24 17:31 DC 12/11/24 17:38 Vital Signs Date Time Temp Pulse Resp B/P (MAP) Pulse Ox O2 Delivery O2 Flow Rate FiO2 12/11/24 17:40 98.6 85 20 138/101 99 Room Air* 0 21 12/11/24 16:52 98.6 85 20 138/101 99 Room Air HEART Score Response (Comments) Value History: Low suspicion (0) 0 EKG: Normal 0 Age: 45-65yrs (+1) 1 Risk Factors: 1-2 risk factors (+1) 1 Initial Troponin: Normal limit (0) 0 Total 2 Medical Decision Making MDM The patient is a 39-year-old female with a history of lupus not on any current medication who presents to the emergency department with complaints of frontal headache, nausea and one episode of nonbloody vomiting onset 30 minutes ago. Patient also reports some chest pain and shortness of breath. Denies any fevers. CBC showed no leukocytosis, no anemia, chemistry showed mild hypomagnesemia, normal renal function, negative lipase, negative troponin x2, CT head showed no acute pathology, chest x-ray showed no cardio pulmonary process. Patient reports improving in headache and chest pain. Patient in no acute distress. Will be discharged to follow up PCP. Labs and imaging discussed with the patient who agrees to follow up. Differential diagnosis: Headache, dehydration, ACS, pneumonia, pneumothorax, anxiety Need for hospitalization: Patient does not meet criteria for hospitalization. There are no social concerns with this patient. DX & DISP Disposition: Discharge Departure Impression: Primary Impression: Headache Additional Impressions: Chest pain, Hypomagnesemia, Chest pain with low risk for cardiac etiology Condition: Stable Additional Instructions: Please follow up with the primary doctor in 1-2 days. Please return to ER if symptoms worsen. You may take Tylenol as needed for headaches. FOLLOW-UP WITH PRIMARY CARE PROVIDER IN 1 TO 2 DAYS. TAKE MEDICATIONS DIRECTED HERE IN THE EMERGENCY ROOM. OKAY TO CONTINUE HOME MEDICATIONS UNLESS OTHERWISE DISCUSSED DURING YOUR VISIT IN THE EMERGENCY ROOM TODAY. RETURN TO YOUR NEAREST EMERGENCY ROOM IF SYMPTOMS WORSEN OR IF THERE IS NO IMPROVEMENT. CALL 911 IF YOU NEED IMMEDIATE ASSISTANCE. TAKE TYLENOL OR MOTRIN [id number] NEEDED AND IF NO CONTRAINDICATIONS ARE PRESENT. INCREASE ORAL HYDRATION. A WOUND CULTURE OR URINE CULTURE WAS ORDERED HERE IN THE EMERGENCY ROOM DEPARTMENT PLEASE FOLLOW-UP WITH PRIMARY CARE PROVIDER AND ADVISE THEM TO GET REPEAT PORTS FROM OUR FACILITY. IF YOU HAD ANY JUAN R WRAP/SPLINTS THAT WERE APPLIED HERE, PLEASE DO NOT REMOVE THEM UNTIL YOU SEE YOUR PRIMARY CARE OR SPECIALTY. Referrals: NONE (PCP) Time of Disposition: 20:27 I have reviewed the case, and I agree with, Diagnosis and Plan NAHED BAUTISTA Dec 11, 2024 17:19 OLMAN SHARMA DO Dec 11, 2024 20:36
[2024-12-11] MEDS: 0.9%NACL 1000ML 1,000 ML IV ONE (17:38)
[2024-12-11] MEDS: metoCLOPRAmide 10 MG/2 ML VIAL IVP ONE (17:38)
[2024-12-11] MEDS: DiphenhydrAMINE HCL 50 MG/ML VIAL IV ONE (17:38)
[2024-12-11] MEDS: acetaMINOPHEN 500 MG TABLET PO ONE (17:38)
--- NOTE | 2024-12-11 18:07 | HMCIMG ---
CT HEAD WITHOUT CONTRAST INDICATION: Nausea and vomiting TECHNIQUE: Noncontrast axial helical CT images from the vertex through the skull base using 5 mm slice thickness without contrast material. CT was performed with one or more of the following dose reduction techniques: Automated exposure control, adjustment of the mA and/or kV according to patient size, or use of iterative reconstruction technique. COMPARISON: None FINDINGS: The cerebral and cerebellar hemispheres are age-appropriate in appearance. No evidence for abnormal extra-axial fluid collections or masses. The ventricles and sulci are normal in size and configuration. No evidence for intracranial parenchymal, epidural, or subdural hemorrhage, mass effect or midline shift. The rey-white matter differentiation is well preserved. No secondary evidence to suggest acute ischemia. The brainstem and cerebellum appear normal. The visualized orbits appear unremarkable. The visible paranasal sinuses and mastoid air cells are clear. The calvarium appears normal. IMPRESSION: No acute intracranial process identified.
--- NOTE | 2024-12-11 18:20 | HMCIMG ---
PORTABLE CHEST RADIOGRAPH INDICATION: cp COMPARISON: 12/19/23 FINDINGS: Heart size is normal. The pulmonary vascularity and laura appear normal. No abnormal pulmonary parenchymal opacity or consolidation identified. No significant pleural effusion noted. No pneumothorax detected. IMPRESSION: Right lower lung nipple shadowing favored, but lateral view can be obtained to confirm. No radiographic evidence for any acute cardiopulmonary process.
[2024-12-11 18:26] LABS: BASOPHILS # (AUTO) 0.04 K/uL (0.00-0.20); BASOPHILS % (AUTO) 0.5 % (0.0-5.0); EOSINOPHILS # (AUTO) 0.08 K/uL (0.00-0.70); EOSINOPHILS % (AUTO) 0.9 % (0.0-8.0); HEMATOCRIT 38.6 % (36-48); IMMATURE GRANULOCYTE ABSOLUTE 0.02 K/uL (0-1); LYMPHOCYTES # (AUTO) 2.2 K/uL (1.0-4.8); MEAN CORPUSCULAR HEMOGLOBIN 30.5 pg (27.0-33.0); MEAN CORPUSCULAR HGB CONC 32.4 g/dL (32.0-36.0); MEAN CORPUSCULAR VOLUME 94.1 fL (79-99); MONOCYTES # (AUTO) 0.6 K/uL (0.1-1.0); MONOCYTES % (AUTO) 6.5 % (3.0-13.0); NEUTROPHILS # (AUTO) 5.6 K/uL (1.8-7.7); NEUTROPHILS % (AUTO) 65.9 % (40.0-77.0); PLATELET COUNT (AUTO) 262 K/uL (130-400); WHITE BLOOD COUNT (AUTO) 8.6 K/uL (4.8-10.8)
[2024-12-11 18:37] LABS: CREATININE 0.5 mg/dL (0.5-1.0); POTASSIUM 3.5 mmol/L (3.5-5.1)
[2024-12-11 18:46] LABS: MAGNESIUM 1.7 mg/dL (1.80-2.40)
[2024-12-11] MEDS: MAGNESIUM OXIDE 400 MG TABLET PO ONE (19:11)
[2024-12-11 19:40] LABS: APPEARANCE,URINE CLOUDY (CLEAR); BILIRUBIN,URINE NEGATIVE (NEGATIVE); COLOR,URINE LIGHT-YELLOW (YELLOW); GLUCOSE, URINE (UA) NEGATIVE (NEGATIVE); KETONES,URINE NEGATIVE (NEGATIVE); LEUKOCYTE ESTERASE ,URINE NEGATIVE Leu/uL (NEGATIVE); NITRATE,URINE NEGATIVE (NEGATIVE); PROTEIN,URINE NEGATIVE (NEGATIVE); UROBILINOGEN,URINE 0.2 mg/dL (0.2-1.0)
[2024-12-11 19:45] LABS: ADD UA MICROSCOPIC YES; BACTERIA,URINE RARE /HPF (None Seen); MUCUS,URINE RARE LPF (None Seen); SQUAMOUS EPITHELIAL CELL,UR FEW /HPF (0-2); UNCLASSIFIED CRYSTAL 2 /HPF (None Seen); WBC,URINE 0-1 /HPF (0-1); YEAST,URINE BUDDING FEW /HPF (None Seen)
[2024-12-11 20:40] VITALS: BP 133/87; PULSE 80; RESP 17; TEMP 98.3; O2SAT 99
--- NOTE | 2024-12-12 06:40 | EKG ---
[facility] Test Date: 2024-12-11 Test Time: 17:27:28 Pat Name: ARAVIND LEONE Department: [facility] Room: Gender: F Youth Development Specialist: [id number] : 1985 Requested By: NAHED BAUTISTA Order Number: [id number] Reading MD: Van Salas Measurements Intervals [place] Rate: 76 P: 85 NC: 157 QRS: 71 QRSD: 78 T: 52 QT: 357 QTc: 401 Interpretive Statements Sinus rhythm Anteroseptal infarct, age indeterminate Compared to ECG 10/15/2024 12:14:23 No significant changes Electronically Signed On 12-15-2024 15:59:16 NEW CAR SALES MANAGER by Van Salas Please click the below link to view image of tracing.
== END 2024-12-11 20:41 | disposition home or self-care (01) ==
LOC: EDH 16:50
DX: R51.9 Headache, unspecified (principal); R07.89 Other chest pain; E83.42 Hypomagnesemia; Z79.899 Other long term (current) drug therapy; Z88.2 Allergy status to sulfonamides; Z88.8 Allergy status to other drugs, medicaments and biological substances; Z91.041 Radiographic dye allergy status
CPT/HCPCS: 99285; 96374; 70450; 71045; 96361; 96375; 82550; 83735; 84484 ×2; 80048; 84703; 83690; 85025; 81001; 36415; 93005; J1200; J7030; J2765

== ENCOUNTER 2024-12-22 11:57 | Emergency (ER) | payer OTHER ==
[~2024-12-22] VITALS: Ht 160 cm; Wt 59.0 kg
[2024-12-22 12:02] VITALS: BP 136/83; PULSE 102; RESP 16; TEMP 98.3
[2024-12-22 12:56] LABS: INFLUENZA TYPE A Negative For Type A (NEGATIVE); INFLUENZA TYPE B Negative For Type B (NEGATIVE)
[2024-12-22 13:10] LABS: RAPID GROUP A STREP positive (NEGATIVE)
[2024-12-22 13:12] LABS: SARS-CoV-2, RNA, NAAT POSITIVE SARS CoV-2 (NEGATIVE)
[2024-12-22] MEDS ORDERED: AMOX500C2 PO (13:26)
[2024-12-22] MEDS ORDERED: NIRM1TAB9 PO (13:26)
--- NOTE | 2024-12-22 13:27 | ERN ---
General Chief Complaint: Flu Symptoms Stated Complaint: EXPOSURE TO COVID AND FLU Time Seen by MD: 12:31 History of Present Illness Initial Comments 39-year-old female history of lupus who presents for cough congestion headache body aches. Allergies: Coded Allergies: Fish Containing Products (Unverified Allergy, Severe, ANAPHYLAXIS, 12/22/23) pineapple (Unverified Allergy, Severe, anaphylaxis, 12/22/23) shellfish derived (Unverified Allergy, Severe, anaphylaxis, 12/22/23) artichoke (Unverified Allergy, Intermediate, 12/21/23) iodine (Unverified Allergy, Intermediate, irritation, 12/22/23) mushroom (Unverified Allergy, Intermediate, 12/21/23) Sulfa (Sulfonamide Antibiotics) (Unverified Allergy, Unknown, 12/09/23) Home Meds Active Scripts Hydrocodone/Acetaminophen (Hydrocodon-Acetaminophen 5-325) 5 Mg-325 Mg Tablet, 1 TAB PO TIDP PRN for pain for 5 Days, #15 TAB 0 Refills Prov:OLMAN SHARMA DO 11/27/24 Ondansetron (Ondansetron Odt) 4 Mg Tab.rapdis, 1 TAB PO Q6HPRN PRN for nausea/vomiting for 4 Days, #16 TAB 0 Refills Prov:OLMAN SHARMA DO 11/27/24 Ibuprofen (Ibuprofen 800 mg Tab) 800 Mg Tab, 800 MG PO Q6H PRN for PAIN, #30 TAB Prov:OLMAN SHARMA DO 11/27/24 Oseltamivir Phosphate (Tamiflu) 75 Mg Cap, 75 MG PO BID for 5 Days, #10 CAP Prov:JAY COSTA MD 10/15/24 Azithromycin (Azithromycin) 250 Mg Tablet, 250 MG PO AD for cough for 5 Days, #6 TAB Prov:JAY COSTA MD 10/15/24 Ibuprofen (Ibuprofen) 800 Mg Tablet, 800 MG PO Q8H PRN for PAIN, #30 TAB 0 Refills Prov:MAGDALENO QUIJANO 06/30/24 Metoclopramide HCl (Reglan) 10 Mg Tablet, 10 MG PO QIDP PRN for NAUSEA, #40 TAB 2 Refills Prov:SPENCER FINCH Sr., MD 02/05/24 Famotidine (Pepcid) 20 Mg Tablet, 20 MG PO BID, #60 TAB 2 Refills Prov:SPENCER FINCH Sr., MD 02/05/24 Ketorolac Tromethamine (Toradol) 10 Mg Tab, 10 MG PO TIDP PRN for PAIN LEVEL 7 TO 10, #5 TAB 1 Refill Prov:SPENCER FINCH Sr., MD 02/05/24 Tamsulosin HCl (Flomax) 0.4 Mg Cap.er.24h, 0.4 MG PO DAILY, #5 CAPSULE.DR 1 Refill Prov:SPENCER FINCH Sr., MD 02/05/24 Tamsulosin HCl (Flomax) 0.4 Mg Cap.er.24h, 0.4 MG PO DAILY for 15 Days, #15 CAPSULE. Prov:YVETTE MENDEZ NP 12/24/23 Phenazopyridine HCl (Pyridium) 200 Mg Tablet, 200 MG PO TID for painful urination for 5 Days, #15 TAB 0 Refills Prov:FRANCISCO SWIFT NP 12/09/23 Ibuprofen (Ibuprofen) 600 Mg Tablet, 600 MG PO Q6H PRN for PAIN, #30 TAB Prov:FRANCISCO SWIFT NP 12/09/23 Ondansetron (Ondansetron Odt) 4 Mg Tab.rapdis, 4 MG PO Q6HPRN PRN for nausea, #16 TAB 0 Refills Prov:FRANCISCO SWIFT NP 12/09/23 Past Medical History Past Medical History: UTI Medical History Other: LUPUS, OVARINA [place] Past Surgical History: Hysterectomy, Unknown Surgical History Other: PARTIAL HYSTERECTOMY Social History Social History: Negative Female( History) History: Not Applicable LMP: Nov 26, 2024 ROS Dictation CONSTITUTIONAL: Headache, fever HEAD/FACE: No signs of trauma. EENT: No eye pain, no blurred vision, no tearing, no double vision, no ear pain, no ear discharge, no nose pain, no nasal congestion, no throat pain, no throat swelling, no mouth pain. RESPIRATORY: Cough congestion CARDIOVASCULAR: No chest pain, no edema, no palpitations, no syncope. GASTROINTESTINAL/ABDOMINAL: No abdominal pain, no constipation, no diarrhea, no nausea, no vomiting. GENITOURINARY: No abnormal discharge, no dysuria, no frequent urination, no hematuria. No complaints of pain in the genitals. MUSCULOSKELETAL: No back pain, no gout, no joint pain, no joint swelling, no muscle pain, no muscle stiffness, no neck pain. INTEGUMENTARY: No change in color, no change in hair/nails, no dryness, no lesion, no lumps, no rash. NEUROLOGICAL/PSYCH: No anxiety, not depressed, no emotional problem, no headache, no numbness, no pre-existing deficit, no history of seizures, no tremors, no weakness. HEMATOLOGIC/LYMPHATIC: Not anemic, no history of blood clots, no apparent bleeding, no bruising, glands not swollen. All Systems Negative, Except as Noted. Physical Exam Physical Exam Dictation VITAL SIGNS: Reviewed. GENERAL APPEARANCE: Alert, oriented x3, no acute distress HEAD AND FACE: Non-traumatic. EYES: PERRL, pink conjunctivas, eyelid no trauma, anterior chamber clear. EARS: Pinnas intact and no signs of trauma or erythema. Ear canals clear and no discharge. TMs no erythema. NOSE: Nasal discharge/rhinorrhea OROPHARYNX: Mouth normal, teeth no caries, tongue pink. Pharynx clear, no erythema. Tonsils no exudates, no abscesses noted. Mucous membrane moist. NECK: Supple, non-tender, no thyromegaly, no masses, no JVD, no bruits. BREAST: Deferred. CHEST: No tenderness, no crepitus, no paradoxical movement, no retractions. LUNGS: Clear, well-ventilated, symmetric, no rales, no wheezing, no rhonchi, no stridor, good breath sounds bilaterally. HEART: Regular rate, regular rhythm, no murmur, no gallops. VASCULAR: No peripheral edema. ABDOMEN: Soft, positive bowel sounds, nondistended, no guarding, nontender, no rebound, no masses no hepatomegaly, no splenomegaly, no Colmenares's sign, no hernias. RECTAL: Deferred. GENITAL: Deferred. NEUROLOGICAL: Normal speech, gross motor function intact, gross sensory fun ction intact. MUSCULOSKELETAL: Neck nontender, full range of motion, back nontender, full range of motion. EXTREMITIES: Nontender, full range of motion. SKIN: Color pink, dry, no turgor, no rash, no lacerations, no abrasions, no contusions. LYMPHATICS: Deferred. Results Laboratory and Microbiology Lab and Micro Result Laboratory Tests Test 12/22/24 12:09 Influenza Type A Antigen Negative For Type A Influenza Type B Antigen Negative For Type B SARS-CoV-2, RNA, NAAT POSITIVE SARS CoV-2 Group A Streptococcus Rapid positive (NEGATIVE) *A MDM CC: Flu-like illness Historian: Patient Comorbidities: Lupus Limitations by social determinants of health: None Differential diagnosis: The flu, COVID, other. Vital signs stable Given Toradol IM, Rocephin IM Tested positive for COVID consistent with symptoms We will DC with Paxlovid, also tested positive for strep so we will give a DC prescription for amoxicillin. Recommend PCP follow up. ED Course Orders Procedure Category Date Status Time Covid Rna Naat LAB 12/22/24 Complete 12:05 Influenza Type A & B, LAB 12/22/24 Complete Rapid 12:05 Rapid (Group A Strep) LAB 12/22/24 Complete 12:05 Ketorolac PHA 12/22/24 Logged Tromethamine 15mg/Ml 13:30 Ceftriaxone 1g Vial PHA 12/22/24 Logged (Rocephine 1g Inj) 13:30 Vital Signs Date Time Temp Pulse Resp B/P (MAP) Pulse Ox O2 Delivery O2 Flow Rate FiO2 12/22/24 12:02 98.2 102 16 136/83 97 Room Air 0 DX & DISP Disposition: Discharge Departure Impression: Primary Impression: COVID Additional Impression: Strep throat Condition: Stable Scripts Amoxicillin (Amoxicillin) 500 Mg Capsule 1 CAP PO BID for 7 Days, #14 CAP 0 Refills Prov: OLMAN SHARMA DO 12/22/24 Nirmatrelvir/Ritonavir (Paxlovid 300-100 mg Dose Pack) 300 Mg (150 Mg X 2)-100 Mg Tab.ds.pk 1 EACH PO BID, #1 PACK Prov: OLMAN SHARMA DO 12/22/24 Additional Instructions: You tested positive for COVID. I have prescribed Paxlovid, which is an antiviral for COVID. Please take as prescribed. You also tested positive for strep throat. It was unclear if this is causing your symptoms. I have prescribed amoxicillin. Take as prescribed. I recommend [id number] cold and flu medications. Alternate Tylenol and Motrin for pain or discomfort. Drink plenty of liquids. Please follow up with the primary doctor. Referrals: KEHINDE KRUEGER MD (PCP) OLMAN SHARMA DO Dec 22, 2024 13:26
[2024-12-22] MEDS: cefTRIAXone 1G VIAL IM ONE (13:37)
[2024-12-22] MEDS: LIDOCAINE HCL 1% 20 ML VIAL ONE (13:38)
[2024-12-22] MEDS: ketOROlac 15MG/ML VIAL (15MG/ML) IM ONE (13:38)
== END 2024-12-22 13:49 | disposition home or self-care (01) ==
LOC: EDH 11:57
DX: U07.1 COVID-19 (principal); J02.0 Streptococcal pharyngitis; Z88.2 Allergy status to sulfonamides; Z88.8 Allergy status to other drugs, medicaments and biological substances; Z90.710 Acquired absence of both cervix and uterus; Z91.041 Radiographic dye allergy status; Z79.899 Other long term (current) drug therapy
CPT/HCPCS: 99284; 87635; 87880; 87804 ×2; 96372 ×2; J1885; J0696

== ENCOUNTER 2025-03-09 16:00 | Emergency (ER) | payer OTHER ==
[~2025-03-09] VITALS: Ht 160 cm; Wt 61.2 kg
[~2025-03-09 16:00] MED LIST changes: +AMOX500C2 PO; +NIRM1TAB9 PO; -TAMS-1 PO; +TAMS-55 PO
[2025-03-09 16:37] LABS: APPEARANCE,URINE TURBID (CLEAR); BILIRUBIN,URINE NEGATIVE (NEGATIVE); COLOR,URINE LIGHT-ORANGE (YELLOW); GLUCOSE, URINE (UA) NEGATIVE (NEGATIVE); KETONES,URINE NEGATIVE (NEGATIVE); LEUKOCYTE ESTERASE ,URINE 250 Leu/uL (NEGATIVE); NITRATE,URINE NEGATIVE (NEGATIVE); OCCULT BLOOD,URINE LARGE (NEGATIVE); PH,URINE 7.5 (5.0-8.0); PROTEIN,URINE 50 mg/dL (NEGATIVE)
[2025-03-09] MEDS: acetaMINOPHEN 500 MG TABLET PO ONE (16:37)
[2025-03-09 16:46] LABS: BASOPHILS # (AUTO) 0.05 K/uL (0.00-0.20); BASOPHILS % (AUTO) 0.5 % (0.0-5.0); EOSINOPHILS # (AUTO) 0.11 K/uL (0.00-0.70); IMMATURE GRANULOCYTE ABSOLUTE 0.05 K/uL (0-1); LYMPHOCYTES # (AUTO) 2.2 K/uL (1.0-4.8); LYMPHOCYTES % (AUTO) 20.6 % (21.0-51.0); MEAN CORPUSCULAR HEMOGLOBIN 30.9 pg (27.0-33.0); MEAN CORPUSCULAR HGB CONC 33.5 g/dL (32.0-36.0); MONOCYTES # (AUTO) 0.6 K/uL (0.1-1.0); NEUTROPHILS # (AUTO) 7.6 K/uL (1.8-7.7); NEUTROPHILS % (AUTO) 71.4 % (40.0-77.0); PLATELET COUNT (AUTO) 247 K/uL (130-400); RED BLOOD CELL COUNT(AUTO) 3.37 MIL/uL (4.00-5.50); RED CELL DISTRIBUTION WIDTH 13.1 % (11.0-15.5); WHITE BLOOD COUNT (AUTO) 10.6 K/uL (4.8-10.8)
[2025-03-09 16:48] LABS: BACTERIA,URINE RARE /HPF (None Seen); MUCUS,URINE FEW LPF (None Seen); RBC,URINE TNTC /HPF (0-1); SQUAMOUS EPITHELIAL CELL,UR MOD /HPF (0-2); WBC,URINE 51-100 /HPF (0-1)
[2025-03-09 16:54] LABS: CREATININE 0.5 mg/dL (0.5-1.0); POTASSIUM 3.5 mmol/L (3.5-5.1)
--- NOTE | 2025-03-09 17:20 | HMCIMG ---
ULTRASOUND OF THE PELVIS ULTRASOUND ABD VASCULAR LIMITED INDICATION: Pelvic pain COMPARISONS: None TECHNIQUE: Transabdominal real-time sonographic images were acquired earlier, and subsequently made available for review. FINDINGS: The uterus measures 9.7 x 6.9 x 6.1 cm. The uterus is normal in echotexture and contour. The endometrial thickness measures 16.0 mm. Suspect minimal vascularity anteriorly. Endometrium is heterogeneous in echogenicity. No evidence for endometrial fluid. The right ovary is surgically absent. The left ovary measures 3.5 x 1.8 x 3.6 cm. The left ovary is normal in size, shape and echogenicity. No left adnexal masses demonstrated. Color Doppler flow is normal throughout the left ovary. Spectral Doppler analysis demonstrates a normal waveform pattern. No free pelvic fluid demonstrated. IMPRESSION: Endometrial irregularity for which GEAR FINISHER consult is recommended. No evidence for intrauterine , and no ectopic demonstrated.
--- NOTE | 2025-03-09 18:50 | NUR ---
PELVIC EXAM DONE AT BEDSIDE BY YAS PICKENS. PRODUCT WAS NOTED IN THE CANAL AND REMOVED. PRODUCT WAS COLLECT AND WILL BE SENT TO PATHOLOGY
[2025-03-09] MEDS ORDERED: CEPH500C2 PO (19:07)
--- NOTE | 2025-03-09 19:08 | ERN ---
General Chief Complaint: Vaginal Bleeding Stated Complaint: VAGINAL BLEEDING, 6 WEEKS Time Seen by MD: 16:03 Time Seen by Midlevel: 16:03 Source: patient History of Present Illness Initial Comments 40-year-old female who presents to the emergency department due to vaginal bleeding onset yesterday. Patient reports she was seen at [facility] ED 1-1/2 weeks ago and was told she was six weeks confirmed with blood hCG and ultrasound. Patient reports abdominal cramping. States she took 200 mg of ibuprofen. Today patient's vaginal bleeding worsened she noticed clots. PMHx lupus, right ovarian cancer for which she had and unilateral oophorectomy. Allergies: Coded Allergies: Fish Containing Products (Unverified Allergy, Severe, ANAPHYLAXIS, 12/22/23) pineapple (Unverified Allergy, Severe, anaphylaxis, 12/22/23) shellfish derived (Unverified Allergy, Severe, anaphylaxis, 12/22/23) artichoke (Unverified Allergy, Intermediate, 12/21/23) iodine (Unverified Allergy, Intermediate, irritation, 12/22/23) mushroom (Unverified Allergy, Intermediate, 12/21/23) Sulfa (Sulfonamide Antibiotics) (Unverified Allergy, Unknown, 12/09/23) Home Meds Active Scripts Cephalexin (Cephalexin) 500 Mg Capsule, 1 CAP PO BID for 7 Days, #14 CAP 0 Refills Prov:SHANNON CUTLER 03/09/25 Amoxicillin (Amoxicillin) 500 Mg Capsule, 1 CAP PO BID for 7 Days, #14 CAP 0 Refills Prov:OLMAN SHARMA DO 12/22/24 Nirmatrelvir/Ritonavir (Paxlovid 300-100 mg Dose Pack) 300 Mg (150 Mg X 2)-100 Mg Tab.ds.pk, 1 EACH PO BID, #1 PACK Prov:OLMAN SHARMA DO 12/22/24 Hydrocodone/Acetaminophen (Hydrocodon-Acetaminophen 5-325) 5 Mg-325 Mg Tablet, 1 TAB PO TIDP PRN for pain for 5 Days, #15 TAB 0 Refills Prov:OLMAN SHARMA DO 11/27/24 Ondansetron (Ondansetron Odt) 4 Mg Tab.rapdis, 1 TAB PO Q6HPRN PRN for nausea/vomiting for 4 Days, #16 TAB 0 Refills Prov:OLMAN SHARMA DO 11/27/24 Ibuprofen (Ibuprofen 800 mg Tab) 800 Mg Tab, 800 MG PO Q6H PRN for PAIN, #30 TAB Prov:OLMAN SHARMA DO 11/27/24 Oseltamivir Phosphate (Tamiflu) 75 Mg Cap, 75 MG PO BID for 5 Days, #10 CAP Prov:JAY COSTA MD 10/15/24 Azithromycin (Azithromycin) 250 Mg Tablet, 250 MG PO AD for cough for 5 Days, #6 TAB Prov:JAY COSTA MD 10/15/24 Ibuprofen (Ibuprofen) 800 Mg Tablet, 800 MG PO Q8H PRN for PAIN, #30 TAB 0 Refills Prov:MAGDALENO QUIJANO 06/30/24 Metoclopramide HCl (Reglan) 10 Mg Tablet, 10 MG PO QIDP PRN for NAUSEA, #40 TAB 2 Refills Prov:SPENCER FINCH Sr., MD 02/05/24 Famotidine (Pepcid) 20 Mg Tablet, 20 MG PO BID, #60 TAB 2 Refills Prov:SPENCER FINCH Sr., MD 02/05/24 Ketorolac Tromethamine (Toradol) 10 Mg Tab, 10 MG PO TIDP PRN for PAIN LEVEL 7 TO 10, #5 TAB 1 Refill Prov:SPENCER FINCH Sr., MD 02/05/24 Tamsulosin HCl (Flomax) 0.4 Mg Cap.er.24h, 0.4 MG PO DAILY, #5 CAPSULE.DR 1 Refill Prov:SPENCER FINCH Sr., MD 02/05/24 Tamsulosin HCl (Flomax) 0.4 Mg Cap.er.24h, 0.4 MG PO DAILY for 15 Days, #15 CAPSULE. Prov:YVETTE MENDEZ NP 12/24/23 Phenazopyridine HCl (Pyridium) 200 Mg Tablet, 200 MG PO TID for painful urination for 5 Days, #15 TAB 0 Refills Prov:FRANCISCO SWIFT DRAWER IN STITCH BONDING MACHINE 12/09/23 Ibuprofen (Ibuprofen) 600 Mg Tablet, 600 MG PO Q6H PRN for PAIN, #30 TAB Prov:FRANCISCO SWIFT NP 12/09/23 Ondansetron (Ondansetron Odt) 4 Mg Tab.rapdis, 4 MG PO Q6HPRN PRN for nausea, #16 TAB 0 Refills Prov:FRANCISCO SWIFT DRAWER IN ST[employer]ING MACHINE 12/09/23 Past Medical History Past Medical History: UTI Medical History Other: LUPUS, OVARIAN CA Past Surgical History: Hysterectomy, Unknown Surgical History Other: PARTIAL HYSTERECTOMY Social History Social History: Negative Female( History) History: Not Applicable LMP: Jan 03, 2025 : 2 Para: 1 Aborts: 0 ROS Dictation Constitutional: Negative for fever,chills, and weight loss Eyes: Negative for injury, pain,redness, and discharge ENT: Negative for injury,pain or swelling Cardiovascular: Negative for chest pain, palpitations, and edema Respiratory: Negative for shortness of breath, cough, and wheezing, Abdomen/GI: Positive for lower abdominal cramping Negative for nausea, vomiting, diarrhea, and constipation Back: Negative for injury and pain : Positive for vaginal bleeding Negative for painful urination or discharge MS/Extremity: Negative for injury and deformity Skin: Negative for rash, and discoloration Neuro: Negative for headache, weakness, numbness, tingling, and seizure Psych: Negative for suicide ideation, homicidal ideation, and hallucinations Physical Exam Physical Exam Dictation General: awake, alert, no acute distress Head/Face: Normocephalic, atraumatic Eyes: PERRL, EOMI, normal conjunctiva ENT: oral cavity clear, oral mucosa moist Neck: Supple, normal range of motion Cardiovascular: RRR, normal S1/S2 Respiratory: CTAB, no respiratory distress, no rales or wheezes Abdomen: Soft, suprapubic tenderness, non-distended, no guarding or rebound. Skin: Warm, dry, normal turgor, no rash MS/Extremity: Pulses equal, no cyanosis, neurovascular intact, FROM Neuro: COAx4, GCS 15, strength 5/5, CN 2-12 intact, normal cerebellar exam, normal gait Psych: Normal behavior, mood, and affect normal Results Laboratory and Microbiology Lab and Micro Result Laboratory Tests Test 03/09/25 16:20 03/09/25 16:41 Urine Color LIGHT-ORANGE (YELLOW) Urine Appearance TURBID (CLEAR) Urine pH 7.5 (5.0-8.0) Urine Specific [place] 1.022 (1.001-1.031) Urine Protein 50 mg/dL (NEGATIVE) H Urine Glucose (UA) NEGATIVE mg/dL (NEGATIVE) Urine Ketones NEGATIVE mg/dL (NEGATIVE) Urine Occult Blood LARGE (NEGATIVE) H Urine Nitrate NEGATIVE (NEGATIVE) Urine Bilirubin NEGATIVE mg/dL (NEGATIVE) Urine Urobilinogen 2.0 mg/dL (0.2-1.0) H Urine Leukocyte Esterase 250 Susannah/uL (NEGATIVE) H Urine RBC TNTC /HPF (0-1) H Urine WBC 51-100 /HPF (0-1) H Urine Squamous Epithelial Cells MOD /HPF (0-2) Urine Bacteria RARE /HPF (None Seen) White Blood Count 10.6 K/uL (4.8-10.8) Red Blood Count 3.37 MIL/uL (4.00-5.50) L Hemoglobin 10.4 g/dL (12.0-16.0) L Hematocrit 31.0 % (36-48) L Mean Corpuscular Volume 92.0 fL (79-99) Mean Corpuscular Hemoglobin 30.9 pg (27.0-33.0) Mean Corpuscular Hemoglobin Concent 33.5 g/dL (32.0-36.0) Red Cell Distribution Width 13.1 % (11.0-15.5) Platelet Count 247 K/uL (130-400) Mean Platelet Volume 10.4 fL (7.5-10.5) Immature Granulocyte % (Auto) 0.5 % (0-1) Neutrophils (%) (Auto) 71.4 % (40.0-77.0) Lymphocytes (%) (Auto) 20.6 % (21.0-51.0) L Monocytes (%) (Auto) 6.0 % (3.0-13.0) Eosinophils (%) (Auto) 1.0 % (0.0-8.0) Basophils (%) (Auto) 0.5 % (0.0-5.0) Neutrophils # (Auto) 7.6 K/uL (1.8-7.7) Lymphocytes # (Auto) 2.2 K/uL (1.0-4.8) Monocytes # (Auto) 0.6 K/uL (0.1-1.0) Eosinophils # (Auto) 0.11 K/uL (0.00-0.70) Basophils # (Auto) 0.05 K/uL (0.00-0.20) Absolute Immature Granulocyte (auto 0.05 K/uL (0-1) Nucleated Red Blood Cells 0.0 % (0.0-0.19) Sodium Level 141 mmol/L (136-145) Potassium Level 3.5 mmol/L (3.5-5.1) Chloride Level 104 mmol/L (101-111) Carbon Dioxide Level 29 mmol/L (21-32) Blood Urea Nitrogen 8 mg/dL (7-18) Creatinine 0.5 mg/dL (0.5-1.0) Glomerular Filtration Rate Calc 121 mL/min (>90) Random Glucose 121 mg/dL (70-105) H Total Calcium 9.0 mg/dL (8.5-10.1) Human Chorionic Gonadotropin, Quant 49766 mIU/mL (0-5) H Labs Reviewed?: Yes EKG/XRAY/US/CT/MRI Ultrasound Comment REASON: vaginal bleeding ORDERING PHYSICIAN: SHANNON CUTLER PROCEDURE: OB <14 - US OB <14 WEEKS ULTRASOUND OF THE PELVIS ULTRASOUND ABD VASCULAR LIMITED INDICATION: Pelvic pain COMPARISONS: None TECHNIQUE: Transabdominal real-time sonographic images were acquired earlier, and subsequently made available for review. FINDINGS: The uterus measures 9.7 x 6.9 x 6.1 cm. The uterus is normal in echotexture and contour. The endometrial thickness measures 16.0 mm. Suspect minimal vascularity anteriorly. Endometrium is heterogeneous in echogenicity. No evidence for endometrial fluid. The right ovary is surgically absent. The left ovary measures 3.5 x 1.8 x 3.6 cm. The left ovary is normal in size, shape and echogenicity. No left adnexal masses demonstrated. Color Doppler flow is normal throughout the left ovary. Spectral Doppler analysis demonstrates a normal waveform pattern. No free pelvic fluid demonstrated. IMPRESSION: Endometrial irregularity for which CORE FEEDER consult is recommended. No evidence for intrauterine , and no ectopic demonstrated. DICTATED BY: NATALIE CHONG MD DATE: 03/09/25 1716 [facility] MDM: Differential diagnosis: Miscarriage, threatened , UTI Rationale: 40-year-old female who presents to the emergency department due to vaginal bleeding onset yesterday. Patient reports she was seen at [facility] ED 1-1/2 weeks ago and was told she was six weeks confirmed with blood hCG and ultrasound. Patient reports abdominal cramping. States she took 200 mg of ibuprofen. Today patient's vaginal bleeding worsened she noticed clots. PMHx lupus, right ovarian cancer for which she had and unilateral oophorectomy. Labs obtained indicate anemia with hemoglobin of 10.4, chemistries within normal limits, hCG 91138, UA shows a urinary tract infection with 250 leukocyte esterase, 51-100 WBCs, and RBCs. Pelvic ultrasound obtained indicates endometrial irregularity, endometrial thickness measuring 16 mm with minimal vascularity anteriorly, no evidence of intrauterine and no ectopic demonstrated, gynecology consult recommended. Dr. Ismael ROMERO was consulted who recommended comparison to previous ultrasound, hCG, and vaginal exam. Labs and ultrasound compared with the once previously obtained at [facility]. Patient's previous hCG 68204, and ultrasound identified twin sacs with only one heart rate identified of 134 beats per minute. Products of conception were noticed at the cervical os during vaginal examination. Products of conception that were obtained were sent out for pathology, results pending. Dr. Pak consulted Dr. Ismael ROMERO once again and he recommended outpatient follow up. Patient was educated on findings, diagnosis, follow up with OBGYN Dr. Guevara. Patient verbalized understanding. Return to the emergency department if any worsening symptoms. Patient is stable for discharge. There are no social concerns with this patient. I independently interpreted the test that were performed, results were reviewed by me and considered findings on radiology if ordered. Medical management and examination interpretation discussions were had by me with other qualified healthcare professionals as indicated for the patient's care. ED Course Orders Procedure Category Date Status Time Cbc With Differential LAB 03/09/25 Complete 16:14 Basic Metabolic Panel LAB 03/09/25 Complete 16:14 Urinalysis LAB 03/09/25 Complete W/Microscopic 16:14 Hcg,Quantitative LAB 03/09/25 Complete 16:14 Acetaminophen 500mg PHA 03/09/25 Complete Tab (Tylenol 500mg T 16:30 Us Ob <14 Weeks US 03/09/25 Resulted 16:14 Culture Urine CASA 03/09/25 In Process 16:38 Pathology Request LAB 03/09/25 In Process Tissue 19:03 Current Medications Medications (Trade) Dose Ordered Sig/Marysol Route PRN Reason Start Time Stop Time Status Last Admin Dose Admin Acetaminophen (TYLenol 500MG TAB) 1,000 mg ONCE ONCE PO 03/09/25 16:30 03/09/25 16:31 DC 03/09/25 16:37 Vital Signs Date Time Temp Pulse Resp B/P (MAP) Pulse Ox O2 Delivery O2 Flow Rate FiO2 03/09/25 19:30 98.1 77 18 125/77 95 Room Air* 0 21 03/09/25 17:30 98.1 92 16 133/81 100 Room Air* 0 21 03/09/25 16:19 98.1 92 16 152/92 100 Room Air* 0 21 03/09/25 16:02 98.1 92 16 152/92 100 Room Air 0 DX & DISP Disposition: Discharge Departure Impression: Primary Impression: Miscarriage Additional Impressions: Anemia, UTI (urinary tract infection) Condition: Stable Scripts Cephalexin (Cephalexin) 500 Mg Capsule 1 CAP PO BID for 7 Days, #14 CAP 0 Refills Prov: SHANNON CUTLER 03/09/25 Additional Instructions: Discharge home. Rest. Follow up with primary care DrManoj in 24 hours. Return to the ER for any acute changes or worsening symptoms. If any medications were prescribed take as directed. Okay to continue home medications unless otherwise discussed during your visit in the emergency room today. Patient was also advised to follow-up with primary care physician in 1 to 2 days for continued monitoring. Referrals: KEHINDE KRUEGER MD (PCP) I performed the substantive portion of the visit. I have reviewed and personally made and approve the management plan that is documented in the notes by myself or the SIMA. I acknowledge full responsibility for the patient's management plan. SHANNON CUTLER March 09, 2025 19:08
[2025-03-09 19:30] VITALS: BP 125/77; PULSE 77; RESP 18; TEMP 98.1; O2SAT 95
== END 2025-03-09 19:40 | disposition home or self-care (01) ==
LOC: EDH 16:00
DX: O03.9 Complete or unspecified spontaneous abortion without complication (principal); O99.011 Anemia complicating pregnancy, first trimester; O23.41 Unspecified infection of urinary tract in pregnancy, first trimester; N39.0 Urinary tract infection, site not specified; O26.891 Other specified pregnancy related conditions, first trimester; R10.2 Pelvic and perineal pain; Z3A.01 Less than 8 weeks gestation of pregnancy; Z88.2 Allergy status to sulfonamides; Z88.8 Allergy status to other drugs, medicaments and biological substances; Z90.710 Acquired absence of both cervix and uterus; Z91.041 Radiographic dye allergy status
CPT/HCPCS: 36415; 76801; 80048; 81001; 84702; 85025; 87086; 87186; 88305; 99284

== ENCOUNTER 2025-03-30 10:13 | Emergency (ER) | payer OTHER ==
[~2025-03-30] VITALS: Ht 160 cm; Wt 59.0 kg
[~2025-03-30 10:13] MED LIST changes: +CEPH500C2 PO
[2025-03-30 10:44] LABS: BASOPHILS # (AUTO) 0.02 K/uL (0.00-0.20); BASOPHILS % (AUTO) 0.3 % (0.0-5.0); EOSINOPHILS # (AUTO) 0.34 K/uL (0.00-0.70); EOSINOPHILS % (AUTO) 4.8 % (0.0-8.0); IMMATURE GRANULOCYTE ABSOLUTE 0.02 K/uL (0-1); LYMPHOCYTES # (AUTO) 2.2 K/uL (1.0-4.8); LYMPHOCYTES % (AUTO) 30.6 % (21.0-51.0); MEAN CORPUSCULAR HEMOGLOBIN 30.2 pg (27.0-33.0); MEAN CORPUSCULAR HGB CONC 33.1 g/dL (32.0-36.0); MEAN CORPUSCULAR VOLUME 91.4 fL (79-99); MONOCYTES # (AUTO) 0.5 K/uL (0.1-1.0); MONOCYTES % (AUTO) 6.4 % (3.0-13.0); NEUTROPHILS # (AUTO) 4.1 K/uL (1.8-7.7); NEUTROPHILS % (AUTO) 57.6 % (40.0-77.0); PLATELET COUNT (AUTO) 336 K/uL (130-400); RED BLOOD CELL COUNT(AUTO) 3.94 MIL/uL (4.00-5.50); RED CELL DISTRIBUTION WIDTH 13.3 % (11.0-15.5); WHITE BLOOD COUNT (AUTO) 7.1 K/uL (4.8-10.8)
[2025-03-30 10:51] LABS: CREATININE 0.5 mg/dL (0.5-1.0)
[2025-03-30 11:05] LABS: RAPID GROUP A STREP negative (NEGATIVE)
[2025-03-30 11:15] LABS: COVID19 (SARS ANTIGEN RAPID) PRESUMPTIVE NEGATIVE (NEGATIVE); INFLUENZA TYPE A Negative For Type A (NEGATIVE); INFLUENZA TYPE B Negative For Type B (NEGATIVE)
[2025-03-30] MEDS: dexaMETHasone SOD PHOSPHATE 4 MG/ML 1ML VIAL IV ONE (11:40)
[2025-03-30] MEDS: acetaMINOPHEN 500 MG TABLET PO ONE (11:40)
[2025-03-30] MEDS: 0.9%NACL 1000ML 1,000 ML IV ONE (11:40)
[2025-03-30 12:57] LABS: APPEARANCE,URINE CLEAR (CLEAR); BILIRUBIN,URINE NEGATIVE (NEGATIVE); COLOR,URINE COLORLESS (YELLOW); GLUCOSE, URINE (UA) NEGATIVE (NEGATIVE); KETONES,URINE NEGATIVE (NEGATIVE); LEUKOCYTE ESTERASE ,URINE NEGATIVE Leu/uL (NEGATIVE); NITRATE,URINE NEGATIVE (NEGATIVE); PH,URINE 7.5 (5.0-8.0); PROTEIN,URINE NEGATIVE (NEGATIVE); UROBILINOGEN,URINE 0.2 mg/dL (0.2-1.0)
--- NOTE | 2025-03-30 13:00 | HMCIMG ---
Exam Type: CHEST 1VW Clinical Information: Cough Comparison: None Findings: The lungs are clear of infiltrates. The heart is normal in size. The bony and soft tissue structures of the chest are unremarkable. Impression: Clear lungs.
[2025-03-30 13:01] LABS: HCG,QUALITATIVE URINE POSITIVE (NEGATIVE)
[2025-03-30 13:04] LABS: SQUAMOUS EPITHELIAL CELL,UR RARE /HPF (0-2); WBC,URINE 0-1 /HPF (0-1)
[2025-03-30] MEDS ORDERED: AZIT250T9 PO (13:29)
--- NOTE | 2025-03-30 13:29 | ERN ---
General Chief Complaint: Shortness of Breath Stated Complaint: SOB, COUGH Time Seen by MD: 10:14 Time Seen by Midlevel: 10:14 Source: patient History of Present Illness Initial Comments 40-year-old female presents to the emergency department due to a cough onset four days. Patient reports dizziness, sinus pressure, congestion, rhinorrhea but denies any chest pain, abdominal pain or further associated symptoms. Patient states she has been taking [id number]-[id number] cold medication, had 3 Rocephin shots, and 2 Solu-Medrol injections but symptoms have not improved. Patient had a miscarriage two weeks ago. PMHx lupus Allergies: Coded Allergies: Fish Containing Products (Unverified Allergy, Severe, ANAPHYLAXIS, 12/22/23) pineapple (Unverified Allergy, Severe, anaphylaxis, 12/22/23) shellfish derived (Unverified Allergy, Severe, anaphylaxis, 12/22/23) artichoke (Unverified Allergy, Intermediate, 12/21/23) iodine (Unverified Allergy, Intermediate, irritation, 12/22/23) mushroom (Unverified Allergy, Intermediate, 12/21/23) Sulfa (Sulfonamide Antibiotics) (Unverified Allergy, Unknown, 12/09/23) Home Meds Active Scripts Azithromycin (Azithromycin) 250 Mg Tablet, 1 TAB PO AD for 5 Days, #6 TAB 0 Refills 2 the first day followed by 1 for days 2-5 Prov:SHANNON CUTLER 03/30/25 Cephalexin (Cephalexin) 500 Mg Capsule, 1 CAP PO BID for 7 Days, #14 CAP 0 Refills Prov:SHANNON CUTLER 03/09/25 Amoxicillin (Amoxicillin) 500 Mg Capsule, 1 CAP PO BID for 7 Days, #14 CAP 0 Refills Prov:OLMAN SHARMA DO 12/22/24 Nirmatrelvir/Ritonavir (Paxlovid 300-100 mg Dose Pack) 300 Mg (150 Mg X 2)-100 Mg Tab.ds.pk, 1 EACH PO BID, #1 PACK Prov:OLMAN SHARMA DO 12/22/24 Hydrocodone/Acetaminophen (Hydrocodon-Acetaminophen 5-325) 5 Mg-325 Mg Tablet, 1 TAB PO TIDP PRN for pain for 5 Days, #15 TAB 0 Refills Prov:OLMAN SHARMA DO 2/6/25 Ondansetron (Ondansetron Odt) 4 Mg Tab.rapdis, 1 TAB PO Q6HPRN PRN for nausea/vomiting for 4 Days, #16 TAB 0 Refills Prov:OLMAN SHARMA DO 11/27/24 Ibuprofen (Ibuprofen 800 mg Tab) 800 Mg Tab, 800 MG PO Q6H PRN for PAIN, #30 TAB Prov:OLMAN SHARMA DO 11/27/24 Oseltamivir Phosphate (Tamiflu) 75 Mg Cap, 75 MG PO BID for 5 Days, #10 CAP Prov:JAY COSTA MD 10/15/24 Azithromycin (Azithromycin) 250 Mg Tablet, 250 MG PO AD for cough for 5 Days, #6 TAB Prov:JAY COSTA MD 10/15/24 Ibuprofen (Ibuprofen) 800 Mg Tablet, 800 MG PO Q8H PRN for PAIN, #30 TAB 0 Refills Prov:MAGDALENO QUIJANO 06/30/24 Metoclopramide HCl (Reglan) 10 Mg Tablet, 10 MG PO QIDP PRN for NAUSEA, #40 TAB 2 Refills Prov:SPENCER FINCH Sr., MD 02/05/24 Famotidine (Pepcid) 20 Mg Tablet, 20 MG PO BID, #60 TAB 2 Refills Prov:SPENCER FINCH Sr., MD 02/05/24 Ketorolac Tromethamine (Toradol) 10 Mg Tab, 10 MG PO TIDP PRN for PAIN LEVEL 7 TO 10, #5 TAB 1 Refill Prov:SPENCER FINCH Sr., MD 02/05/24 Tamsulosin HCl (Flomax) 0.4 Mg Cap.er.24h, 0.4 MG PO DAILY, #5 CAPSULE.DR 1 Refill Prov:SPENCER FINCH Sr., MD 02/05/24 Tamsulosin HCl (Flomax) 0.4 Mg Cap.er.24h, 0.4 MG PO DAILY for 15 Days, #15 CAPSULE. Prov:YVETTE MENDEZ NP 12/24/23 Phenazopyridine HCl (Pyridium) 200 Mg Tablet, 200 MG PO TID for painful urination for 5 Days, #15 TAB 0 Refills Prov:FRANCISCO SWIFT NP 12/09/23 Ibuprofen (Ibuprofen) 600 Mg Tablet, 600 MG PO Q6H PRN for PAIN, #30 TAB Prov:FRANCISCO SWIFT NP 12/09/23 Ondansetron (Ondansetron Odt) 4 Mg Tab.rapdis, 4 MG PO Q6HPRN PRN for nausea, #16 TAB 0 Refills Prov:FRANCISCO SWIFT LITERACY EDUCATION PROFESSOR 12/09/23 Past Medical History Past Medical History: Other Medical History Other: lupus Past Surgical History: Other Surgical History Other: d/c 2 weeks ago Social History Social History: Negative Female( History) History: Not Applicable : 2 Para: 1 Aborts: 0 ROS Dictation Constitutional: Negative for fever,chills, and weight loss Eyes: Negative for injury, pain,redness, and discharge ENT: Positive for congestion, rhinorrhea, sinus pressure Negative for injury,pain or swelling Cardiovascular: Negative for chest pain, palpitations, and edema Respiratory: Positive for shortness of breath, cough Negative for wheezing, Abdomen/GI: Negative for abdominal pain, nausea, vomiting, diarrhea, and constipation Back: Negative for injury and pain : Negative for painful urination, bleeding or discharge MS/Extremity: Negative for injury and deformity Skin: Negative for rash, and discoloration Neuro: Positive for dizziness Negative for headache, weakness, numbness, tingling, and seizure Psych: Negative for suicide ideation, homicidal ideation, and hallucinations Physical Exam Physical Exam Dictation General: awake, alert, no acute distress Head/Face: Normocephalic, atraumatic. Sinus pressure Eyes: PERRL, EOMI, normal conjunctiva ENT: oral cavity clear, oral mucosa moist Neck: Supple, normal range of motion Cardiovascular: RRR, normal S1/S2 Respiratory: CTAB, no respiratory distress, no rales or wheezes Abdomen: Soft, non-tender, non-distended, no guarding or rebound. Skin: Warm, dry, normal turgor, no rash MS/Extremity: Pulses equal, no cyanosis, neurovascular intact, FROM Neuro: COAx4, GCS 15, strength 5/5, CN 2-12 intact, normal cerebellar exam, normal gait Psych: Normal behavior, mood, and affect normal Results Laboratory and Microbiology Lab and Micro Result Laboratory Tests Test 03/30/25 10:35 03/30/25 10:49 03/30/25 12:43 White Blood Count 7.1 K/uL (4.8-10.8) Red Blood Count 3.94 MIL/uL (4.00-5.50) L Hemoglobin 11.9 g/dL (12.0-16.0) L Hematocrit 36.0 % (36-48) Mean Corpuscular Volume 91.4 fL (79-99) Mean Corpuscular Hemoglobin 30.2 pg (27.0-33.0) Mean Corpuscular Hemoglobin Concent 33.1 g/dL (32.0-36.0) Red Cell Distribution Width 13.3 % (11.0-15.5) Platelet Count 336 K/uL (130-400) Mean Platelet Volume 9.6 fL (7.5-10.5) Immature Granulocyte % (Auto) 0.3 % (0-1) Neutrophils (%) (Auto) 57.6 % (40.0-77.0) Lymphocytes (%) (Auto) 30.6 % (21.0-51.0) Monocytes (%) (Auto) 6.4 % (3.0-13.0) Eosinophils (%) (Auto) 4.8 % (0.0-8.0) Basophils (%) (Auto) 0.3 % (0.0-5.0) Neutrophils # (Auto) 4.1 K/uL (1.8-7.7) Lymphocytes # (Auto) 2.2 K/uL (1.0-4.8) Monocytes # (Auto) 0.5 K/uL (0.1-1.0) Eosinophils # (Auto) 0.34 K/uL (0.00-0.70) Basophils # (Auto) 0.02 K/uL (0.00-0.20) Absolute Immature Granulocyte (auto 0.02 K/uL (0-1) Nucleated Red Blood Cells 0.0 % (0.0-0.19) Sodium Level 141 mmol/L (136-145) Potassium Level 4.0 mmol/L (3.5-5.1) Chloride Level 104 mmol/L (101-111) Carbon Dioxide Level 30 mmol/L (21-32) Blood Urea Nitrogen 15 mg/dL (7-18) Creatinine 0.5 mg/dL (0.5-1.0) Glomerular Filtration Rate Calc 121 mL/min (>90) Random Glucose 100 mg/dL (70-105) Total Calcium 9.0 mg/dL (8.5-10.1) Influenza Type A Antigen Negative For Type A Influenza Type B Antigen Negative For Type B SARS-CoV-2 Antigen (Rapid) PRESUMPTIVE NEGATIVE Group A Streptococcus Rapid negative (NEGATIVE) Urine Color COLORLESS (YELLOW) Urine Appearance CLEAR (CLEAR) Urine pH 7.5 (5.0-8.0) Urine Specific [place] 1.014 (1.001-1.031) Urine Protein NEGATIVE mg/dL (NEGATIVE) Urine Glucose (UA) NEGATIVE mg/dL (NEGATIVE) Urine Ketones NEGATIVE mg/dL (NEGATIVE) Urine Occult Blood +- (TRACE) (NEGATIVE) H Urine Nitrate NEGATIVE (NEGATIVE) Urine Bilirubin NEGATIVE mg/dL (NEGATIVE) Urine Urobilinogen 0.2 mg/dL (0.2-1.0) Urine Leukocyte Esterase NEGATIVE Susannah/uL Urine RBC 2-5 /HPF (0-1) H Urine WBC 0-1 /HPF (0-1) Urine Squamous Epithelial Cells RARE /HPF (0-2) Urine Bacteria None /HPF (None Seen) Urine HCG, Qualitative POSITIVE (NEGATIVE) H Labs Reviewed?: Yes EKG/XRAY/US/CT/MRI X-RAY Comment REASON: Cough ORDERING PHYSICIAN: SHANNON CUTLER PROCEDURE: CXR1VW - CHEST 1VW Exam Type: CHEST 1VW Clinical Information: Cough Comparison: None Findings: The lungs are clear of infiltrates. The heart is normal in size. The bony and soft tissue structures of the chest are unremarkable. Impression: Clear lungs. DICTATED BY: JOSE ROMERO MD DATE: 03/30/25 1258 MDM MDM: Differential diagnosis: Viral illness, pneumonia, sinusitis Rationale: 40-year-old female presents to the emergency department due to a cough onset four days. Patient reports dizziness, sinus pressure, congestion, rhinorrhea but denies any chest pain, abdominal pain or further associated symptoms. Patient states she has been taking [id number]-[id number] cold medication, had 3 Rocephin shots, and 2 Solu-Medrol injections but symptoms have not improved. Patient had a miscarriage two weeks ago. PMHx lupus Vital signs has been stable during ED course. Labs obtained indicating mild anemia with hemoglobin of 11.9, otherwise CBC and BNP nonspecific. UA negative for urinary tract infection. Serology negative for COVID flu and strep. Chest x-ray shows no acute abnormalities. Patient then received IV fluids, dexamethasone, acetaminophen in the ED. Antibiotics prescribed for outpatient treatment of acute sinusitis. Patient was educated on findings and diagnosis. Advised to follow up with PCP. Return to the emergency department if any worsening symptoms. Patient verbalized understanding. Patient stable for discharge. There are no social concerns with this patient. I independently interpreted the test that were performed, results were reviewed by me and considered findings on radiology if ordered. Medical management and examination interpretation discussions were had by me with other qualified healthcare professionals as indicated for the patient's care. ED Course Orders Procedure Category Date Status Time Cbc With Differential LAB 03/30/25 Complete 10:25 Basic Metabolic Panel LAB 03/30/25 Complete 10:25 Urinalysis LAB 03/30/25 Complete W/Microscopic 10:25 ,Urine Test LAB 03/30/25 Complete 10:25 Chest 1vw RAD 03/30/25 Resulted 10:25 Covid19 (Sars Antigen LAB 03/30/25 Complete Rapid) 10:25 Influenza Type A & B, LAB 03/30/25 Complete Rapid 10:25 Rapid (Group A Strep) LAB 03/30/25 Complete 10:25 0.9%Nacl 1000ml (Ns PHA 03/30/25 Complete 1000ml) 10:30 Dexamethasone 4mg/Ml PHA 03/30/25 Complete 1ml Vial (Dexametha 10:30 Acetaminophen 500mg PHA 03/30/25 Complete Tab (Tylenol 500mg T 10:30 Current Medications Medications (Trade) Dose Ordered Sig/Mary[place] Route PRN Reason Start Time Stop Time Status Last Admin Dose Admin Acetaminophen (TYLenol 500MG TAB) 1,000 mg ONCE ONCE PO 03/30/25 10:30 03/30/25 10:31 DC 03/30/25 11:40 Dexamethasone Sodium Phosphate (dexaMETHasone 4MG/ML 1ML VIAL) 4 mg ONCE ONCE IV 03/30/25 10:30 03/30/25 10:31 DC 03/30/25 11:40 Sodium Chloride 1,000 ml @ 0 mls/hr ONCE ONCE IV 03/30/25 10:30 03/30/25 10:31 DC 03/30/25 11:40 Vital Signs Date Time Temp Pulse Resp B/P (MAP) Pulse Ox O2 Delivery O2 Flow Rate FiO2 03/30/25 11:25 98.2 77 18 121/70 98 Room Air* 0 21 03/30/25 10:21 98.4 83 22 140/83 99 Room Air* 0 21 03/30/25 10:18 98.4 83 22 140/84 98 Room Air 0 DX & DISP Disposition: Discharge Departure Impression: Primary Impression: Acute sinusitis Condition: Stable Scripts Azithromycin (Azithromycin) 250 Mg Tablet 1 TAB PO AD for 5 Days, #6 TAB 0 Refills 2 the first day followed by 1 for days 2-5 Prov: SHANNON CUTLER 03/30/25 Additional Instructions: Discharge home. Rest. Follow up with primary care DrManoj in 24 hours. Return to the ER for any acute changes or worsening symptoms. If any medications were prescribed take as directed. Okay to continue home medications unless otherwise discussed during your visit in the emergency room today. Patient was also advised to follow-up with primary care physician in 1 to 2 days for continued monitoring. Referrals: KEHINDE KRUEGER MD (PCP) I performed the substantive portion of the visit. I have reviewed and personally made and approve the management plan that is documented in the notes by myself or the SIMA. I acknowledge full responsibility for the patient's management plan. SHANNON CUTLER Mar 30, 2025 13:29
[2025-03-30 14:02] VITALS: BP 116/74; PULSE 61; RESP 18; TEMP 98.3; O2SAT 98
== END 2025-03-30 14:08 | disposition home or self-care (01) ==
LOC: EDH 10:13
DX: J01.90 Acute sinusitis, unspecified (principal); Z88.2 Allergy status to sulfonamides; Z88.8 Allergy status to other drugs, medicaments and biological substances; Z91.041 Radiographic dye allergy status; Z79.899 Other long term (current) drug therapy; Z20.822 Contact with and (suspected) exposure to COVID-19
CPT/HCPCS: 99284; 96374; 71045; 96361; 87426; 80048; 85025; 87880; 87804 ×2; 81001; 81025; 36415; J1100; J7030

== ENCOUNTER 2025-05-22 00:14 | Emergency (ER) | payer OTHER ==
[~2025-05-22] VITALS: Ht 160 cm; Wt 57.2 kg
[~2025-05-22 00:14] MED LIST changes: +IBUP-1492 PO; -IBUP-2070 PO; +NIRM1TAB12 PO; -NIRM1TAB9 PO
--- NOTE | 2025-05-22 00:31 | ERN ---
General Chief Complaint: Chest Pain Stated Complaint: CHEST PAIN Time Seen by MD: 00:18 Source: patient History of Present Illness Initial Comments 40-year-old female with lupus experienced severe chest pain nausea and shortness of breath with the chest tightness approximately 45 minutes prior to arrival at the hospital. Blood pressure measurement at the time showed a systolic blood pressure of 174 with a diastolic of 156. She was given to doses of nitroglycerin sublingual and that did improve her symptoms. EMS was called she is brought to the emergency room EMS gave her four baby aspirins. Currently she is holding a clenched fist over her chest as it makes her feel better in moderate distress. Alert and oriented answering questions. Patient had a D&C two weeks ago. Allergies: Coded Allergies: Fish Containing Products (Unverified Allergy, Severe, ANAPHYLAXIS, 12/22/23) pineapple (Unverified Allergy, Severe, anaphylaxis, 12/22/23) shellfish derived (Unverified Allergy, Severe, anaphylaxis, 12/22/23) artichoke (Unverified Allergy, Intermediate, 12/21/23) iodine (Unverified Allergy, Intermediate, irritation, 12/22/23) mushroom (Unverified Allergy, Intermediate, 12/21/23) Sulfa (Sulfonamide Antibiotics) (Unverified Allergy, Unknown, 12/09/23) Home Meds Active Scripts Azithromycin (Azithromycin) 250 Mg Tablet, 1 TAB PO AD for 5 Days, #6 TAB 0 Refills 2 the first day followed by 1 for days 2-5 Prov:SHANNON CUTLER 03/30/25 Cephalexin (Cephalexin) 500 Mg Capsule, 1 CAP PO BID for 7 Days, #14 CAP 0 Refills Prov:SHANNON CUTLER 03/09/25 Amoxicillin (Amoxicillin) 500 Mg Capsule, 1 CAP PO BID for 7 Days, #14 CAP 0 Refills Prov:OLMAN SHARMA DO 12/22/24 Nirmatrelvir/Ritonavir (Paxlovid 300-100 mg Dose Pack) 300 Mg (150 Mg X 2)-100 Mg Tab.ds.pk, 1 EACH PO BID, #1 PACK Prov:OLMAN SHARMA DO 12/22/24 Hydrocodone/Acetaminophen (Hydrocodon-Acetaminophen 5-325) 5 Mg-325 Mg Tablet, 1 TAB PO TIDP PRN for pain for 5 Days, #15 TAB 0 Refills Prov:OLMAN SHARMA DO 11/27/24 Ondansetron (Ondansetron Odt) 4 Mg Tab.rapdis, 1 TAB PO Q6HPRN PRN for nausea/vomiting for 4 Days, #16 TAB 0 Refills Prov:OLMAN SHARMA DO 11/27/24 Ibuprofen (Ibuprofen 800 mg Tab) 800 Mg Tab, 800 MG PO Q6H PRN for PAIN, #30 TAB Prov:OLMAN SHARMA DO 11/27/24 Oseltamivir Phosphate (Tamiflu) 75 Mg Cap, 75 MG PO BID for 5 Days, #10 CAP Prov:JAY COSTA MD 10/15/24 Azithromycin (Azithromycin) 250 Mg Tablet, 250 MG PO AD for cough for 5 Days, #6 TAB Prov:JAY COSTA MD 10/15/24 Ibuprofen (Ibuprofen) 800 Mg Tablet, 800 MG PO Q8H PRN for PAIN, #30 TAB 0 Refills Prov:MAGDALENO QUIJANO 06/30/24 Metoclopramide HCl (Reglan) 10 Mg Tablet, 10 MG PO QIDP PRN for NAUSEA, #40 TAB 2 Refills Prov:SPENCER FINCH Sr., MD 02/05/24 Famotidine (Pepcid) 20 Mg Tablet, 20 MG PO BID, #60 TAB 2 Refills Prov:SPENCER FINCH Sr., MD 02/05/24 Ketorolac Tromethamine (Toradol) 10 Mg Tab, 10 MG PO TIDP PRN for PAIN LEVEL 7 TO 10, #5 TAB 1 Refill Prov:SPENCER FINCH Sr., MD 02/05/24 Tamsulosin HCl (Flomax) 0.4 Mg Cap.er.24h, 0.4 MG PO DAILY, #5 CAPSULE. 1 Refill Prov:SPENCER FINCH Sr., MD 02/05/24 Tamsulosin HCl (Flomax) 0.4 Mg Cap.er.24h, 0.4 MG PO DAILY for 15 Days, #15 CAPSULE. Prov:YVETTE MENDEZ [employer] 12/24/23 Phenazopyridine HCl (Pyridium) 200 Mg Tablet, 200 MG PO TID for painful urination for 5 Days, #15 TAB 0 Refills Prov:FRANCISCO SWFIT NP 2/18/24 Ibuprofen (Ibuprofen) 600 Mg Tablet, 600 MG PO Q6H PRN for PAIN, #30 TAB Prov:FRANCISCO SWIFT [employer] F[employer]ER 12/09/23 Ondansetron (Ondansetron Odt) 4 Mg Tab.rapdis, 4 MG PO Q6HPRN PRN for nausea, #16 TAB 0 Refills Prov:FRANCISCO [employer]IFT [employer] 12/09/23 Past Medical History Past Medical History: Other Medical History Other: lupus Past Surgical History: Other, Unknown Surgical History Other: d/c 2 weeks ago Social History Social History: Negative Female( History) History: Not Applicable : 2 Para: 1 Aborts: 0 Constitutional: (-) chills, (-) diaphoresis, (-) fever, (-) malaise, (-) weakness, (-) other documentation EENTM: (-) eye pain, (-) blurred vision, (-) tearing, (-) double vision, (-) ear pain, (-) ear discharge, (-) nose pain, (-) nose congestion, (-) throat pain, (-) Throat swelling, (-) mouth pain, (-) tooth pain, (-) mouth swelling, (-) other documentation Respiratory: (-) cough, (-) orthopnea, (-) short of breath, (-) stridor, (-) wheezing, (-) other documentation Cardiovascular: (+) chest pain Gastrointestinal/Abdominal: (+) nausea Genitourinary: (-) vaginal discharge, (-) vaginal bleeding, (-) dysuria, (-) frequency, (-) hematuria, (-) pain, (-) other documentation Musculoskeletal: (-) Neck pain, (-) back pain, (-) Flank Pain, (-) joint pain, (-) joint swelling, (-) muscle pain, (-) muscle stiffness, (-) gout, (-) other documentation Skin: (-) laceration, (-) contusion, (-) abrasion, (-) abscess, (-) rash, (-) change in color, (-) change in hair, (-) change in nails, (-) diaphoresis, (-) dryness, (-) other documentation Neuro: (-) altered mental status, (-) headache, (-) syncope, (-) paralysis, (-) numbness, (-) seizure, (-) pre-existing deficit, (-) tremors, (-) weakness, (-) dizziness, (-) slurred speech, (-) vertigo, (-) other documentation Physical Exam General Appearance: (+) moderate distress Orientation: (+) alert, (+) oriented x 3 Head/Face Trauma: No Eye: bilateral eye normal inspection, bilateral eye PERRL, bilateral eye EOMI Ear, Nose, Throat: (+) hearing grossly normal, (+) normal ENT inspection, (+) moist mucous membraine Neck: (+) normal inspection, (+) supple, (+) full range of motion Respiratory: (+) chest non-tender, (+) lungs clear Heart: (+) tachycardia Vascular: (+) no edema, (+) normal peripheral pulse Gastrointestinal: (+) soft, (+) non-tender, (+) bowel sound present Results Laboratory and Microbiology Lab and Micro Result Laboratory Tests Test 05/22/25 00:28 05/22/25 01:34 05/22/25 02:28 White Blood Count 7.9 K/uL (4.8-10.8) Red Blood Count 3.96 MIL/uL (4.00-5.50) L Hemoglobin 11.9 g/dL (12.0-16.0) L Hematocrit 35.4 % (36-48) L Mean Corpuscular Volume 89.4 fL (79-99) Mean Corpuscular Hemoglobin 30.1 pg (27.0-33.0) Mean Corpuscular Hemoglobin Concent 33.6 g/dL (32.0-36.0) Red Cell Distribution Width 13.0 % (11.0-15.5) Platelet Count 231 K/uL (130-400) Mean Platelet Volume 11.1 fL (7.5-10.5) H Immature Granulocyte % (Auto) 0.1 % (0-1) Neutrophils (%) (Auto) 52.5 % (40.0-77.0) Lymphocytes (%) (Auto) 38.9 % (21.0-51.0) Monocytes (%) (Auto) 6.3 % (3.0-13.0) Eosinophils (%) (Auto) 1.8 % (0.0-8.0) Basophils (%) (Auto) 0.4 % (0.0-5.0) Neutrophils # (Auto) 4.2 K/uL (1.8-7.7) Lymphocytes # (Auto) 3.1 K/uL (1.0-4.8) Monocytes # (Auto) 0.5 K/uL (0.1-1.0) Eosinophils # (Auto) 0.14 K/uL (0.00-0.70) Basophils # (Auto) 0.03 K/uL (0.00-0.20) Absolute Immature Granulocyte (auto 0.01 K/uL (0-1) Nucleated Red Blood Cells 0.0 % (0.0-0.19) Prothrombin Time 10.5 SEC (9.6-11.6) Prothromb Time International Ratio 0.99 (0.85-1.15) Activated Partial Thromboplast Time 25.9 SEC (26.3-35.5) L D-Dimer Quantitative (PE/DVT) 468 ng/mL (0-500) Sodium Level 137 mmol/L (136-145) Potassium Level 3.4 mmol/L (3.5-5.1) L Chloride Level 103 mmol/L (101-111) Carbon Dioxide Level 27 mmol/L (21-32) Blood Urea Nitrogen 9 mg/dL (7-18) Creatinine 0.6 mg/dL (0.5-1.0) Glomerular Filtration Rate Calc 116 mL/min (>90) Random Glucose 100 mg/dL (70-105) Total Calcium 9.1 mg/dL (8.5-10.1) Magnesium Level 1.70 mg/dL (1.80-2.40) L Total Creatine Kinase 65 U/L (21-232) # Troponin I High Sensitivity < 4 ng/L (4-50) L 5 ng/L (4-50) Triglycerides Level 58 mg/dL (30-200) Cholesterol Level 148 mg/dL (<200) LDL Cholesterol 76 mg/dL (0-99) HDL Cholesterol 69 mg/dL (35-85) Serum Test, Qualitative NEGATIVE (NEGATIVE) Urine Color COLORLESS (YELLOW) Urine Appearance CLEAR (CLEAR) Urine pH 7.5 (5.0-8.0) Urine Specific [place] 1.004 (1.001-1.031) Urine Protein NEGATIVE mg/dL (NEGATIVE) Urine Glucose (UA) NEGATIVE mg/dL (NEGATIVE) Urine Ketones NEGATIVE mg/dL (NEGATIVE) Urine Occult Blood NEGATIVE (NEGATIVE) Urine Nitrate NEGATIVE (NEGATIVE) Urine Bilirubin NEGATIVE mg/dL (NEGATIVE) Urine Urobilinogen 0.2 mg/dL (0.2-1.0) Urine Leukocyte Esterase NEGATIVE Susannah/uL MDM MDM: Differential diagnosis: Acute DE, coronary vascular spasm, pulmonary embolism, intra-abdominal catastrophe. Rationale: Tests considered and ordered secondary to shared decision making include: Previous outside records reviewed: Old ER visits. Risk of complication and/or morbidity or mortality of patient management: None Medications-Per medication reconciliation Need for hospitalization: Patient does meet criteria for hospitalization. Need for emergency major/minor surgery: No There are no social concerns with this patient. Prescription drug management Prescriptions will include symptomatic care Patient's prior external medical records from other ER visits were reviewed by me as indicated. Prior testing and results from previous visits were reviewed. Prior tests were taken into account with medical decision making and resource ut ilization, independent historian/historians were used to obtain complete medical history. I independently interpreted the test that were performed, results were reviewed by me and considered findings on radiology if ordered. Patient's serial troponins are both normal EKG is negative for ischemic changes. Chest x-ray shows no pericardial effusion no pneumothorax no infiltrates. Patient's CBC shows a normal white blood cell count. ED Course Orders Procedure Category Date Status Time Vital Signs Per CPOE 05/22/25 Transmitted Routine 00:19 12 Lead Ekg Tracing- EKG 05/22/25 Logged Technical 00:19 Oxygen By Nc/Pulse Ox CPOE 05/22/25 Transmitted 00:19 Maintain Iv CPOE 05/22/25 Transmitted 00:19 Iv Insertion CPOE 05/22/25 Transmitted 00:19 Cardiac Monitoring CPOE 05/22/25 Transmitted 00:19 Pulse Oximetry With CPOE 05/22/25 Transmitted Vs And Prn 00:19 Cbc With Differential LAB 05/22/25 Complete 00:19 Activity: Br W/Brp CPOE 05/22/25 Transmitted With Assist 00:19 Creatine Kinase, Total LAB 05/22/25 Complete 00:19 Troponin I High LAB 05/22/25 Complete Sensitivity 00:19 Basic Metabolic Panel LAB 05/22/25 Complete 00:19 Prothrombin Time With LAB 05/22/25 Complete INR 00:18 D-Dimer LAB 05/22/25 Complete 00:18 Chest 1vw RAD 05/22/25 Resulted 00:18 12 Lead Ekg Tracing- EKG 05/22/25 Logged Technical 00:18 Lactated Ringers PHA 05/22/25 In Process 1000ml (Lactated 00:30 Heparin 25,000 PHA 05/22/25 In Process Units/250ml D5w 00:30 Morphine 4mg Syg PHA 05/22/25 Complete (Morphine 4mg Syg) 00:30 Ondansetron 4mg Inj PHA 05/22/25 Complete (Zofran 4mg Inj) 00:30 Urinalysis Profile LAB 05/22/25 Complete 00:18 Partial LAB 05/22/25 Complete Thromboplastin Time 00:18 Lipid Panel LAB 05/22/25 Complete 00:19 Magnesium LAB 05/22/25 Complete 00:19 Testing, LAB 05/22/25 Complete Serum Hcg 00:54 Nurse Driven Gunderson SAGAR 05/22/25 In Process Removal Pro 01:31 Troponin I High LAB 05/22/25 Complete Sensitivity 02:17 Current Medications Medications (Trade) Dose Ordered Sig/Marysol Route PRN Reason Start Time Stop Time Status Last Admin Dose Admin Heparin Sodium/ Dextrose 250 ml @ 0 mls/hr PROTOCOL PRN IV PROTOCOL 05/22/25 00:30 05/23/25 00:29 Lactated Ringer's 1,000 ml @ 125 mls/hr ONCE ONCE IV 05/22/25 00:30 05/22/25 08:29 05/22/25 00:54 Morphine Sulfate (morPHINE 4MG SYG) 4 mg ONCE ONCE IVP 05/22/25 00:30 05/22/25 00:31 DC 05/22/25 00:48 Ondansetron HCl (zoFRAN 4MG INJ) 4 mg ONCE ONCE IVP 05/22/25 00:30 05/22/25 00:31 DC 05/22/25 00:53 Vital Signs Date Time Temp Pulse Resp B/P (MAP) Pulse Ox O2 Delivery O2 Flow Rate FiO2 05/22/25 02:33 72 14 141/82 99 Nasal Cannula* 2 28 05/22/25 00:45 99.0 80 18 143/75 100 Nasal Cannula* 4 36 05/22/25 00:15 99.3 76 25 155/89 99 Nasal Cannula 4.0 DX & DISP Disposition: Discharge Departure Impression: Primary Impression: Chest pain with low risk for cardiac etiology Additional Impression: Urinary retention Condition: Stable Additional Instructions: You came in with severe chest pain/pressure. I workup has been negative for any cardiac ischemia. Chest x-ray is normal as well. The conditions may be a result of your lupus or as you say your anxiety. I recommend you follow-up with your fire equipment inspector to see if this episode was a result of your lupus and if there is anything they can do to prevent things from happening again. Your bladder was distended and we needed to insert a Gunderson. This could be also a result of your lupus. There is something called lupus myelitis, which is inflammation in the spinal cord. In his could be causing the inability of your bladder to empty. This too should be brought up with your fire equipment inspector. Referrals: KEHINDE KRUEGER MD (PCP) TIGRE LESLIE MD May 22, 2025 00:31
[2025-05-22 00:36] LABS: IMMATURE GRANULOCYTE ABSOLUTE 0.01 K/uL (0-1); NUCLEATED RED BLOOD CELLS 0.0 % (0.0-0.19); PLATELET COUNT (AUTO) 231 K/uL (130-400); RED BLOOD CELL COUNT(AUTO) 3.96 MIL/uL (4.00-5.50); RED CELL DISTRIBUTION WIDTH 13.0 % (11.0-15.5); WHITE BLOOD COUNT (AUTO) 7.9 K/uL (4.8-10.8)
[2025-05-22 00:44] LABS: CREATININE 0.6 mg/dL (0.5-1.0); GLOMERULAR FILTR. RATE CALC 116.0 mL/min (>90); GLUCOSE,RANDOM 100.0 mg/dL (70-105); SODIUM SERUM 137.0 mmol/L (136-145); UREA NITROGEN, BLOOD 9.0 mg/dL (7-18)
[2025-05-22 00:49] LABS: CREATINE KINASE, TOTAL 65.0 U/L (21-232); LDL DIRECT 76.0 mg/dL (0-99)
[2025-05-22 00:50] LABS: INR 0.99 (0.85-1.15)
[2025-05-22] MEDS: LACTATED RINGERS 1000ML 1,000 ML IV ONE (00:54)
--- NOTE | 2025-05-22 01:25 | NUR ---
PT VERBILIZED TO ED RN WHILE ON BED SEE; THAT SHE IS "UNABLE TO URINATE" AND FEELS LIKE "HER BLADDER IS GOING TO EXPLODE." ED RN PREFORMED BLADDER SCAN AT BEDSIDE. BLADDER SCAN SHOWED GREATHER THAN 796MLS OF URINE IN BLADDER. ED MD AND PRIMARY NURSE MADE AWARE. ORDERS GIVEN.
[2025-05-22 01:37] LABS: APPEARANCE,URINE CLEAR (CLEAR); GLUCOSE, URINE (UA) NEGATIVE (NEGATIVE); LEUKOCYTE ESTERASE ,URINE NEGATIVE Leu/uL (NEGATIVE); NITRATE,URINE NEGATIVE (NEGATIVE); OCCULT BLOOD,URINE NEGATIVE (NEGATIVE)
--- NOTE | 2025-05-22 01:39 | HMCIMG ---
EXAM: CR Chest, 1 view CLINICAL HISTORY: Chest pain. COMPARISON: Chest radiograph dated 03/30/2025. FINDINGS: The lungs show no infiltrates or other acute findings. No pleural effusion or pneumothorax. The cardiomediastinal silhouette is within normal limits. No acute osseous abnormality. IMPRESSION: No acute cardiopulmonary process is evident. No interval changes. /[place]
[2025-05-22 01:47] LABS: ADD UA MICROSCOPIC NO
--- NOTE | 2025-05-22 03:55 | NUR ---
JOSÉ REMOVED AT THIS TIME, PATIENT TOLERATED REMOVAL OF JOSÉ WELL.
[2025-05-22 03:57] VITALS: BP 137/87; PULSE 67; RESP 16; TEMP 98.6; O2SAT 99
--- NOTE | 2025-05-22 05:30 | EKG ---
[facility] Test Date: 2025-05-22 Test Time: 00:24:54 Pat Name: ARAVIND LEONE Department: [facility] Room: Gender: F Tubing Tester: [id number] : 1985 Requested By: TIGRE LESLIE Order Number: [id number] Reading MD: Bhavesh Thomson Measurements Intervals [place] Rate: 78 P: 64 [place]: 148 QRS: 53 QRSD: 73 T: 38 QT: 351 QTc: 399 Interpretive Statements Sinus rhythm Anterior infarct, old Compared to ECG 12/11/2024 17:27:28 No significant changes Electronically Signed On 05-24-2025 10:50:42 CDT by Bhavesh Thomson Please click the below link to view image of tracing.
== END 2025-05-22 04:00 | disposition home or self-care (01) ==
LOC: EDH 00:14
DX: R07.89 Other chest pain (principal); R33.9 Retention of urine, unspecified; R11.0 Nausea; R06.02 Shortness of breath; Z91.018 Allergy to other foods; Z91.041 Radiographic dye allergy status; Z88.2 Allergy status to sulfonamides; Z88.8 Allergy status to other drugs, medicaments and biological substances; Z79.899 Other long term (current) drug therapy; Z79.2 Long term (current) use of antibiotics
CPT/HCPCS: 99285; 82550; 83735; 84484 ×2; 80061; 80048; 84703; 85025; 85378; 85610; 85730; 81003; 36415; 71045; 96374; 96361; 96375; 93005; J7120; J2405; J2270